=== PATIENT | female | born 1935 | race Caucasian/White ===

== ENCOUNTER 2023-03-15 14:30 | Inpatient (IN) | payer MEDICARE, OTHER, SELFPAY ==
[2023-03-15] VITALS (22 sets, daily range): BP systolic 106–130; BP diastolic 55–96; PULSE 88–122; RESP 10–25; TEMP 36.4–36.6; O2SAT 80–93; BMI 16.2
--- NOTE | 2023-03-15 14:31 | ED_ITS ---
HPI - General Adult General: Chief complaint: Weakness Stated complaint: FAILURE TO THRIVE Time Seen by Provider: 03/15/23 14:31 Limitations: altered mental status History of Present Illness: Ms. Rojas is an 88-year-old lady with unclear history presented the emergency department for mental status change. The patient herself largely does not provide meaningful history. Per EMS report she lives with family and they were concerned about functional decline over the past 2 weeks including progressive weakness and no longer having the ability to ambulate or take care of herself. She possibly has a history of Alzheimer's. Found to be in A-fib with RVR with no reported cardiac history. Review of Systems General: Reports: ROS unobtainable due to mental status PFSH ED PFSH: Medical History (Updated 03/21/23 @ 00:01 by ISABELL Santillan) Medical history unknown Surgical History (Updated 03/15/23 @ 14:45 by Aubrey Marcial MD) Surgical history unknown Family History (Updated 03/15/23 @ 16:53 by Tanvir Lynch MD) Other Family history unknown Social History (Updated 03/15/23 @ 16:54 by Tanvir Lynch MD) Smoking and tobacco status: never smoked Alcohol intake: never Substance/Drug Use: never Physical Exam Const: COMMON NORMALS: alert GENERAL APPEARANCE: cooperative and well developed HENMT: COMMON NORMALS: normocephalic and atraumatic HEAD & SCALP: normocephalic and atraumatic Eye: COMMON NORMALS: conjunctivae normal CONJUNCTIVA: Yes conjunctivae normal SCLERA: sclerae normal Neck/C-Spine: COMMON NORMALS: supple GENERAL: Yes trachea midline Resp: COMMON NORMALS: normal respiratory effort EFFORT & INSPECTION: Yes ab le to speak in complete sentences Cardio: RATE: tachycardic RHYTHM: abnormal rhythm GI: COMMON NORMALS: Soft to palpation PALPATION: Yes Soft to palpation and No Tenderness to palpation present (GI) Extremity: GENERAL: Yes normal exam except as noted and Yes edema Neuro: COMMON NORMALS: CN's II-XII intact bilaterally, moves all extremities, no focal motor deficits and no sensory deficits noted SENSORIUM/ORIENTATION: Yes alert and Yes Orientation impaired Psych: MEMORY/COGNITION: Yes memory grossly impaired Course Vital Signs: Vital signs: Vital Signs Temperature 97.3 F L 03/20/23 11:40 Pulse Rate 80 03/20/23 13:25 Respiratory Rate 14 03/20/23 13:25 Blood Pressure 107/72 03/20/23 13:25 Pulse Oximetry 87 L 03/20/23 13:25 Oxygen Delivery Me thod Room Air 03/20/23 11:40 Oxygen Flow Rate 4 03/18/23 07:56 MDM - General Adult Medical Decision Making 88-year-old lady presented the emergency department for generalized decline. Nonfocal exam as noted above. Patient is nontoxic though somewhat ill. EKG demonstrates atrial fibrillation with rapid ventricular response. No STEMI. Labs with no leukocytosis, normal hemoglobin and platelet count. Metabolic panel with elevated sodium and chloride with mildly decreased bicarb. Creatinin e is elevated with somewhat unclear baseline. Negative range 2-hour delta troponin. BNP is significantly elevated. Urinalysis and viral panel are pending. Chest x-ray demonstrates no lobar consolidation or pneumothorax. Concern for volume overload. CT head demonstrates no acute mass or intracranial hemorrhage. Patient has volume overload in combination with new onset arrhythmia and requires in-hospital management. The results of ED evaluation were discussed with the patient including plan for admission due to requirement for level of care not available if discharged to prevent significant worsening/deterioration. Patient agreeable with plan. Discussed with hospitalist service who was agreeable to admit patient. Medical Records I reviewed the patient's medical records. Lab Data I reviewed the patient's lab results. 03/20/23 04:22 03/20/23 04:22 Radiology Impressions Chest X-Ray 03/15/23 14:41 IMPRESSION: 1. Cardiac enlargement with pulmonary vascular congestion and bilateral pleural effusions consistent with CHF. Head CT 03/15/23 14:41 IMPRESSION: 1. No acute intracranial abnormality. 2. Atrophy and chronic deep white matter ischemic changes. Chest/Abdomen/Pelvis CT 03/15/23 16:45 IMPRESSION: 1. No acute findings. 2. Moderate pleural effusions with dependent atelectasis. 3. Pericardial effusion. IMPRESSION: 1. No acute findings. 2. Diffuse body wall edema. 3. Rectal impaction. ADDENDUM: 03/15/232142 Minimal T11 and severe T12 compression fractures. These are age indeterminate. Laboratory Results WBC 8.1 10^3/uL (4.0-10.0) 03/15/23 14:53 RBC 4.07 10^6/uL (4.1-5.3) L 03/15/23 14:53 Hgb 12.5 g/dL (11.5-15.3) 03/15/23 14:53 Hct 39.7 % (37.0-47.0) 03/15/23 14:53 MCV 97.5 fl (81-99) 03/15/23 14:53 MCH 30.7 pg (28.0-34.0) 03/15/23 14:53 MCHC 31.5 g/dL (30.0-36.0) 03/15/23 14:53 RDW 15.2 % (12.1-15.1) H 03/15/23 14:53 Plt Count 240 10^3/cmm (130-400) 03/15/23 14:53 MPV 10.2 fL (7.4-10.4) 03/15/23 14:53 Neut % (Auto) 84.8 % 03/15/23 14:53 Lymph % (Auto) 5.0 % 03/15/23 14:53 [place] % (Auto) 9.0 % 03/15/23 14:53 Eos % (Auto) 0.2 % 03/15/23 14:53 Baso % (Auto) 0.5 % 03/15/23 14:53 Neut # (Auto) 6.89 10^3/uL (1.8-7.7) 03/15/23 14:53 Lymph # (Auto) 0.4 10^3/uL (0.8-4.8) L 03/15/23 14:53 [place] # (Auto) 0.7 10^3/uL (0.2-0.9) 03/15/23 14:53 Eos # (Auto) 0.0 10^3/uL (0.0-0.8) 03/15/23 14:53 Baso # (Auto) 0.0 10^3/uL (0.0-0.1) 03/15/23 14:53 Nucleated RBC % (auto) 0 % 03/15/23 14:53 Nucleated RBCs # 0.0 /100WBC 03/15/23 14:53 Sodium 147 mmol/L (136-145) H 03/15/23 14:53 Potassium 3.9 mmol/L (3.5-5.1) 03/15/23 14:53 Chloride 114 mmol/L (98-107) H 03/15/23 14:53 Carbon Dioxide 19 mmol/L (22-29) L 03/15/23 14:53 Anion Gap 17.9 (5-19) 03/15/23 14:53 BUN 40 mg/dL (8-23) H 03/15/23 14:53 Creatinine 1.8 mg/dL (0.5-0.9) H 03/15/23 14:53 GFR Calculation Not Reportable 03/15/23 14:53 Glucose 158 mg/dL (65-115) H 03/15/23 14:53 Estimat Average Glucose 103 03/15/23 14:53 Hemoglobin A1c 5.2 % (4.0-6.0) 03/15/23 14:53 Calculated Osmolality 317 mOsm/kg (285-295) H 03/15/23 14:53 Lactic Acid 1.7 mmol/L (0.5-2.2) 03/15/23 14:53 Calcium 8.7 mg/dL (8.5-10.5) 03/15/23 14:53 Magnesium 2.1 mg/dL (1.7-2.3) 03/15/23 14:53 Total Bilirubin 0.5 mg/dL (0.15-1.2) 03/15/23 14:53 AST 20 U/L (0-32) 03/15/23 14:53 ALT 21 U/L (0-33) 03/15/23 14:53 Alkaline Phosphatase 102 U/L (35-105) 03/15/23 14:53 Troponin T Baseline 66 ng/L (0-10) H 03/15/23 14:53 C-Reactive Protein 12.5 mg/L (0.0-4.9) H 03/15/23 14:53 NT-Pro-B Natriuret Pep 01249 pg/mL (0-450) H 03/15/23 14:53 Total Protein 6.1 g/dL (6.6-8.7) L 03/15/23 14:53 Albumin 3.4 g/dL (3.5-5.2) L 03/15/23 14:53 Globulin 2.7 g/dL (1.3-4.6) 03/15/23 14:53 Triglycerides 125 mg/dL (0-150) 03/15/23 14:53 Cholesterol 187 mg/dL (0-200) 03/15/23 14:53 LDL Cholesterol, Calc 102 mg/dL (50-129) 03/15/23 14:53 HDL Cholesterol 60 mg/dL (60-100) 03/15/23 14:53 LDL/HDL Ratio 1.70 RATIO (0.00-3.22) 03/15/23 14:53 Cholesterol/HDL Ratio 3.12 mg/dL (0.0-4.40) 03/15/23 14:53 Procalcitonin 0.09 ng/mL (0-0.5) 03/15/23 14:53 TSH 3.99 uIU/mL (0.27-4.20) 03/15/23 14:53 Urine Color Yellow (Yellow) 03/15/23 16:46 Urine Appearance Hazy (CLEAR) A 03/15/23 16:46 Urine pH 5 (5-7) 03/15/23 16:46 Ur Specific [place] 1.020 (1.005-1.030) 03/15/23 16:46 Urine Protein Trace (Negative) 03/15/23 16:46 Urine Glucose (UA) Norm (Normal) 03/15/23 16:46 Urine Ketones Negative (Negative) 03/15/23 16:46 Urine Blood Trace (Negative) H 03/15/23 16:46 Urine Nitrate Positive (Negative) H 03/15/23 16:46 Urine Bilirubin Neg (Negative) 03/15/23 16:46 Urine Urobilinogen Norm mg/dL (Negative) 03/15/23 16:46 Ur Leukocyte Esterase 2+ (Negative) H 03/15/23 16:46 Urine RBC 5-10 /hpf (0-2) H 03/15/23 16:46 Urine WBC 25-40 /hpf (0-5) H 03/15/23 16:46 Ur Squamous Epith Cells 0-4 /hpf (0-5) H 03/15/23 16:46 Amorphous Sediment Not Reportable 03/15/23 16:46 Urine Bacteria 4+ /hpf (NONE) H 03/15/23 16:46 Nasal Influ A H1 2009 PCR Not detected (NOT DETECT) 03/15/23 15:44 Adenovirus (PCR) Not detected (NOT DETECT) 03/15/23 15:44 C. pneumoniae DNA (PCR) Not detected (NOT DETECT) 03/15/23 15:44 Coronavirus 229E (PCR) Not detected (NOT DETECT) 03/15/23 15:44 Human Metapneumovir PCR Not detected (NOT DETECT) 03/15/23 15:44 Influenza A (H1) PCR Not detected (NOT DETECT) 03/15/23 15:44 Influenza A (H3) PCR Not detected (NOT DETECT) 03/15/23 15:44 Influenza Type A (PCR) Not detected (NOT DETECT) 03/15/23 15:44 Influenza Type B (PCR) Not detected (NOT DETECT) 03/15/23 15:44 M. pneumoniae (PCR) Not detected (NOT DETECT) 03/15/23 15:44 Parainfluenza 1 (PCR) Not detected (NOT DETECT) 03/15/23 15:44 Parainfluenza 2 (PCR) Not detected (NOT DETECT) 03/15/23 15:44 Parainfluenza 3 (PCR) Not detected (NOT DETECT) 03/15/23 15:44 Parainfluenza 4 (PCR) Not detected (NOT DETECT) 03/15/23 15:44 RSV Type A (PCR) Not detected (NOT DETECT) 03/15/23 15:44 RSV Type B (PCR) Not detected (NOT DETECT) 03/15/23 15:44 Entero/Rhino (PCR) Not detected (NOT DETECT) 03/15/23 15:44 SARS-CoV-2 (PCR) Not detected (NOT DETECT) 03/15/23 15:44 Discharge Plan Discharge Patient Disposition: Admitted As Inpatient Admit Provider: Tanvir Lynch Clinical Impression: Atrial fibrillation with RVR, Symptom of congestive heart failure, Volume overload, Creatinine elevation Condition: Stable Discharge Diet: GI Soft Discharge Activity: Resume usual activity Coding Level of Care Code ED [employer] Supervisor for Kimberley Cooper
--- NOTE | 2023-03-15 14:41 | XR_ITS ---
WS: [id number] Exam: XR chest 1V portable [id number] Date/Time of Exam: 03/15/2023 2:43 PM Reason For Exam: ams No previous exams. There is cardiac enlargement with pulmonary vascular congestion and bilateral pleural effusions sugge sting CHF. There is compressive atelectasis of the right lower lobe as well as the left lower lobe an d lingula. No pneumothorax is seen. The mediastinum is normal in contour. Calcification of the mitral valve annulus. At least 2 old left rib fractures noted. Old left clavicle fracture. XR/XR chest 1V portable [id number] IMPRESSION: 1. Cardiac enlargement with pulmonary vascular congestion and bilateral pleural effusions consistent with CHF.
--- NOTE | 2023-03-15 14:41 | CTR_ITS ---
PROCEDURE INFORMATION: Exam: CT Head Without Contrast Exam date and time: 03/15/2023 3:11 PM Age: 88 years old Clinical indication: Altered mental status/memory loss; Additional info: AMS TECHNIQUE: Imaging protocol: Computed tomography of the head without contrast. Radiation optimization: All CT scans at this facility use at least one of these dose optimization techniques: automated exposure control; mA and/or kV adjustment per patient size (includes targeted exams where dose is matched to clinical indication); or iterative reconstruction. REPORTING DATA: Count of CT and Cardiac NM exams in prior 12 months: This patient has received 0 known CTs and 0 known cardiac nuclear medicine studies in the 12 months prior to the current study. COMPARISON: No relevant prior studies available. RADIATION DOSE METRICS: Total DLP (mGy-cm): 1053.88 FINDINGS: Brain: There is no acute intracranial hemorrhage, cerebral edema, or midline shift. Chronic microvascular ischemic changes are seen in the periventricular white matter. Age-related cerebral and cerebellar volume loss is present. Cerebral ventricles: Mild ex vacuo dilation of the lateral and third ventricles is noted. Paranasal sinuses: There is no acute sinusitis. Mastoid air cells: The mastoid air cells are clear. Orbital cavities: The included orbital structures are unremarkable. Bones/joints: No acute fracture. Soft tissues: Unremarkable. Vasculature: Atherosclerotic calcifications are seen involving the cavernous carotid arteries. CT/CT head wo con* [id number] IMPRESSION: 1. No acute intracranial abnormality. 2. Atrophy and chronic deep white matter ischemic changes.
--- NOTE | 2023-03-15 14:50 | ECG_ITS ---
[facility] Test Date: 2023-03-15 Pat Name: Vaishali Rojas Department: Room: Gender: Female [facility] Tutor: : 1935 Requested By: Aubrey Marcial Order Number: [id number] Justin MD: Royce Dawson M.D. Measurements Intervals [place] Rate: 116 P: 54 SD: 161 QRS: 78 QRSD: 95 T: 15 QT: 337 QTc: 470 Interpretive Statements SINUS TACHYCARDIA WITH OCCASIONAL VENTRICULAR PREMATURE COMPLEXES WITH OCCASIONAL SUPRAVENTRICULAR PREMATURE COMPLEXES NONSPECIFIC T-WAVE ABNORMALITY ABNORMAL RHYTHM ECG No previous ECG available for comparison Electronically Signed On 03-15-2023 21:18:06 CDT by Royce Dawson M.D. [id number]
[2023-03-15 15:10] LABS: Basophils % 0.5 %; Eosinophils % 0.2 %; Hematocrit 39.7 % (37.0-47.0); Hemoglobin 12.5 g/dL (11.5-15.3); Lymphocytes # 0.4 10^3/uL (0.8-4.8); Mean Corpuscular HGB Conc 31.5 g/dL (30.0-36.0); Mean Corpuscular Hemoglobin 30.7 pg (28.0-34.0); Mean Corpuscular Volume 97.5 fl (81-99); Mean Platelet Volume 10.2 fL (7.4-10.4); Monocytes # 0.7 10^3/uL (0.2-0.9); Neutrophils # 6.89 10^3/uL (1.8-7.7); Neutrophils % 84.8 %; Nucleated Red Blood Cells % 0 %; Platelet Count 240 10^3/cmm (130-400); Red Blood Count 4.07 10^6/uL (4.1-5.3); Red Cell Distribution Width 15.2 % (12.1-15.1); White Blood Count 8.1 10^3/uL (4.0-10.0)
[2023-03-15 15:27] LABS: Lactic Sepsis W/Reflex 1.7 mmol/L (0.5-2.2)
[2023-03-15 15:43] LABS: Procalcitonin 0.09 ng/mL (0-0.5); Thyroid Stimulating Hormone 3.99 uIU/mL (0.27-4.20)
[2023-03-15 16:07] LABS: Alanine Aminotransferase 21 U/L (0-33); Albumin Level 3.4 g/dL (3.5-5.2); Alkaline Phosphatase 102 U/L (35-105); Anion Gap 17.9 (5-19); Aspartate Amino Transferase 20 U/L (0-32); Blood Urea Nitrogen 40 mg/dL (8-23); C Reactive Protein 12.5 mg/L (0.0-4.9); Calcium 8.7 mg/dL (8.5-10.5); Carbon Dioxide 19 mmol/L (22-29); Chloride 114 mmol/L (98-107); Globulin 2.7 g/dL (1.3-4.6); Glucose 158 mg/dL (65-115); Magnesium 2.1 mg/dL (1.7-2.3); Osmolality Calculated 317 mOsm/kg (285-295); Potassium 3.9 mmol/L (3.5-5.1); Sodium 147 mmol/L (136-145); Total Bilirubin 0.5 mg/dL (0.15-1.2); Total Protein 6.1 g/dL (6.6-8.7)
--- NOTE | 2023-03-15 16:08 | PC.PHAR ---
ATTEMPTED TO CONTACT PTS CONTACTS TO VERIFY MEDICATIONS AT 1600- PT UNABLE TO VERIFY MEDS AND CAN NOT GET AHOLD OF PTS CONTACT
[2023-03-15 16:11] LABS: Troponin(5th) Baseline 66 ng/L (0-10)
--- NOTE | 2023-03-15 16:42 | ECG_ITS ---
[facility] Test Date: 2023-03-15 Pat Name: Vaishali Rojas Department: Room: 112 Gender: Female Supervisor Plasma: : 1935 Requested By: Aubrey Marcial Order Number: [id number] Justin MD: Royce Dawson M.D. Measurements Intervals [place] Rate: 108 P: 45 MD: 174 QRS: 79 QRSD: 93 T: 120 QT: 338 QTc: 454 Interpretive Statements Multifocal atrial tachycardia with occasional PVCs NONSPECIFIC T-WAVE ABNORMALITY ABNORMAL RHYTHM ECG Compared to ECG 03/15/2023 14:50:26 No significant changes Electronically Signed On 03-15-2023 21:33:55 CDT by Royce Dawson M.D. [id number]
--- NOTE | 2023-03-15 16:45 | USCV_ITS ---
Bob Vaihsali Age: 88 Gender: F : 1935 Exam Date: 03/15/2023 17:16 Ordering Phys: Tanvir Lynch MD Technologist: CT Exam Location: [facility] [place] Indication: SOB, atrial fibrillation with RVR, altered mental status BP: 106 / 55 HR: 94 Rhythm: mostly atrial fibrillation with strings sinus rhythm Technical Quality: Good MEASUREMENTS (Male / Female) Normal Values 2D ECHO LV Diastolic Diameter PLAX 4.5 cm 4.2 - 5.9 / 3.9 - 5.3 cm LV Systolic Diameter PLAX 3.5 cm IVS Diastolic Thickness 1.3 cm 0.6 - 1.0 / 0.6 - 0.9 cm IVS Systolic Thickness 1.5 cm LVPW Diastolic Thickness 1.1 cm 0.6 - 1.0 / 0.6 - 0.9 cm LVPW Systolic Thickness 1.2 cm LVOT Diameter 1.9 cm LV Ejection Fraction 2D Teich 47.4 % LV Ejection Fraction MOD 2C 63.1 % LV Ejection Fraction 2C AL 65.5 % LA Diameter 4.7 cm LA Width 4.0 cm LA Height 6.5 cm RA Width 2.8 cm RA Height 5.0 cm Aorta at Sinotubular Diameter 2.4 cm IVC Diameter 1.5 cm M-MODE Aortic Annulus Diameter 2.4 cm LA Ao Ratio MM 2.0 MV E Point Septal Separation 1.0 cm DOPPLER AV Peak Velocity 120.7 cm/s LVOT Peak Velocity 51.0 cm/s AV Area Cont Eq vti 1.0 cm squared AV Area Cont Eq pk 1.2 cm squared MV Area PHT 3.7 cm squared Mitral E to A Ratio 1.4 MV E' Velocity 51.0 cm/s Mitral E to MV E' Ratio 9.6 Mitral E to LV E' Lateral Ratio 7.4 Mitral E to LV E' Septal Ratio 13.6 TR Peak Velocity 281.6 cm/s TR Peak Gradient 31.7 mmHg TV Peak E Velocity 56.0 cm/s Right Atrial Pressure 10.0 mmHg Pulmonary Artery Systolic Pressu 41.7 mmHg PV Peak Velocity 71.0 cm/s FINDINGS Left Ventricle Mildly increased left ventricular cavity size. Severely decreased left ventricular systolic function. Left ventricular ejection fraction is estimated at 20-25 %. Global left ventricular hypokinesis. Rhythm precludes evaluation of diastolic function. Right Ventricle Normal right ventricular size and systolic function. Right ventricular systolic pressure 41 mmHg. Right Atrium Normal right atrial size. Left Atrium Moderately increased left atrial size. Mitral Valve Mildly thickened mitral valve. No mitral valve stenosis. Mild- moderate mitral valve regurgitation. Aortic Valve Thickened trileaflet aortic valve. No aortic valve stenosis. No aortic valve regurgitation. Tricuspid Valve Structurally normal tricuspid valve. No tricuspid valve stenosis. Mild tricuspid valve regurgitation. Pulmonic Valve Structurally normal pulmonic valve. No pulmonary valve stenosis. Mild pulmonary valve regurgitation. Pericardium Small pericardial effusion. Left pleural effusion. Aorta Normal size aortic root and proximal ascending aorta. IVC Normal IVC dimension with >50% respiratory change of the inferior vena cava. CONCLUSIONS 1. Mildly increased left ventricular cavity size. Severely decreased left ventricular systolic function. Left ventricular ejection fraction is estimated at 20-25 %. Global left ventricular hypokinesis. 2. Mild-moderate mitral valve regurgitation. 3. Mild tricuspid valve regurgitation. 4. Small pericardial effusion. Left pleural effusion. 5. No Prior similar studies to compare. Rand Lux MD (Electronically Signed) Final Date: 16 March 2023 16:42 S
--- NOTE | 2023-03-15 16:45 | CTR_ITS ---
PROCEDURE INFORMATION: Exam: CT Chest Without Contrast; Diagnostic Exam date and time: 03/15/2023 8:21 PM Age: 88 years old Clinical indication: Pain and injury or trauma; Fall; Other: Weakness; Crushing; Abdominal pain; Localized; Right upper quadrant (ruq); Shortness of breath; Chest pressure; Additional info: SOB, fall weakness, ruq pain TECHNIQUE: Imaging protocol: Diagnostic computed tomography of the chest without contrast. Radiation optimization: All CT scans at this facility use at least one of these dose optimization techniques: automated exposure control; mA and/or kV adjustment per patient size (includes targeted exams where dose is matched to clinical indication); or iterative reconstruction. REPORTING DATA: Count of CT and Cardiac NM exams in prior 12 months: This patient has received 0 known CTs and 0 known cardiac nuclear medicine studies in the 12 months prior to the current study. COMPARISON: CR XR chest 1V portable [id number] 03/15/2023 2:46 PM RADIATION DOSE METRICS: Total DLP (mGy-cm): 224.9 FINDINGS: Lungs: Centrilobular emphysema. Dependent atelectasis in both lungs. No consolidation. Pleural spaces: Moderate bilateral pleural effusions, left slightly greater than right. Heart: Cardiomegaly. Pericardial effusion. Coronary arteries: No coronary artery calcifications. Lymph nodes: Unremarkable. No enlarged lymph nodes. Vasculature: Unremarkable. No aortic aneurysm. Bones/joints: Rightward thoracic curvature. Old posterior left rib fracture. Minimal T11 compression. Severe T12 compression with sclerosis and 2 mm retropulsion. Old healed left clavicle fracture. Old posterior right 12th and anterior left rib fractures. No acute fracture. Soft tissues: Body wall edema. PROCEDURE INFORMATION: Exam: CT Abdomen And Pelvis Without Contrast Exam date and time: 03/15/2023 8:21 PM Age: 88 years old Clinical indication: Pain and injury or trauma; Fall; Other: Weakness; Crushing; Abdominal pain; Localized; Right upper quadrant (ruq); Shortness of breath; Chest pressure; Additional info: SOB, fall weakness, ruq pain TECHNIQUE: Imaging protocol: Computed tomography of the abdomen and pelvis without contrast. Radiation optimization: All CT scans at this facility use at least one of these dose optimization techniques: automated exposure control; mA and/or kV adjustment per patient size (includes targeted exams where dose is matched to clinical indication); or iterative reconstruction. REPORTING DATA: Count of CT and Cardiac NM exams in prior 12 months: This patient has received 0 known CTs and 0 known cardiac nuclear medicine studies in the 12 months prior to the current study. COMPARISON: CR XR chest 1V portable [id number] 03/15/2023 2:46 PM RADIATION DOSE METRICS: Total DLP (mGy-cm): 290.6 FINDINGS: Liver: Normal. No mass. Gallbladder and bile ducts: Cholecystectomy. The bile ducts are normal. Pancreas: Atrophic pancreas. Spleen: Normal. No splenomegaly. Adrenal glands: Mild fullness of the adrenal glands could indicate hyperplasia. Kidneys and ureters: Normal. No hydronephrosis. Stomach and bowel: Large amount of stool in the rectum measuring 7.6 cm in diameter. The stomach, small bowel, and remainder of the colon are otherwise unremarkable. No wall thickening or obstruction. Appendix: The appendix is not visualized. No secondary signs of appendicitis. Intraperitoneal space: Unremarkable. No free air. No significant fluid collection. Vasculature: Arterial calcifications. No aneurysm. Lymph nodes: Unremarkable. No enlarged lymph nodes. Urinary bladder: Coy catheter in a decompressed urinary bladder. Reproductive: Unremarkable as visualized. Bones/joints: Thoracolumbar scoliosis and degenerative changes. Eliceo and compression screw in the proximal left femur. Degenerative changes of the right hip joint. Soft tissues: Diffuse body wall edema. CT/[place] [id number] IMPRESSION: 1. No acute findings. 2. Moderate pleural effusions with dependent atelectasis. 3. Pericardial effusion. IMPRESSION: 1. No acute findings. 2. Diffuse body wall edema. 3. Rectal impaction.
--- NOTE | 2023-03-15 16:49 | PM.HP ---
Providers/Chief Complaint Admitting Physician: Tanvir Lynch MD Chief Complaint: FAILURE TO THRIVE History of Present Illness Vaishali Rojas is a 88 year old female with no known past medical history, she has not seen a physician in many years, she lives at home with her grandson, and her daughter, who presents to [facility] due to altered mental status, generalized weakness, poor appetite, fall, generalized decline. Currently patient is alert to person, not to place, not to time, she can follow some basic commands, briefly has no complaints, she does not know why she is here in the hospital, she denies any pain complaints, denies any shortness of breath complaints, no chest pain complaints, currently she is running atrial fibrillation, heart rates in the 110s, normotensive, afebrile, on room air. I was able to speak to patient's grandson, he tells me that the family seems to think she has Alzheimer's dementia as she has had a generalized decline for the last few months, she has been more forgetful, but over the last 2 weeks she has had a rapid decline, she has not walked in over a week, she full assist to the commode, she is more confused, she will not eat anything, no fevers, no nausea, no vomiting no abdominal pain complaints, no shortness of breath complaints she did fall, but no localizing symptoms or pain complaints, she did does not have a cardiac history to his knowledge, does not have a long history to his knowledge, no history of strokes, no history of cancers, he is not sure if there is any family history,, he is not sure if there is any surgeries in her past, no history of smoking, his major concern was is that she has not eaten or drink for the last 2 weeks, and she has not been able to get up or ambulate Review of Systems General: Reports: ROS unobtainable due to mental status Medications/Allergies Home Medications Medication Instructions Recorded Confirmed Last Taken Type Unable to Assess 03/15/23 03/15/23 Unknown History Allergies Allergy/AdvReac Type Severity Reaction Status Date / Time No Known Allergies Allergy Verified 03/15/23 15:25 PFSH Acute PFSH: Medical History (Updated 03/15/23 @ 17:16 by Tanvir Lynch MD) Medical history unknown Surgical History (Updated 07/19/23 @ 14:45 by Aubrey Marcial MD) Surgical history unknown Family History (Updated 03/15/23 @ 16:53 by Tanvir Lynch MD) Other Family history unknown Social History (Updated 03/15/23 @ 16:54 by Tanvir Lynch MD) Smoking and tobacco status: never smoked Alcohol intake: never Substance/Drug Use: never Vitals/I&O/Wt Last Vital Signs Temp 97.5 F L 03/15/23 15:29 Pulse 114 H 03/15/23 15:29 Resp 21 H 03/15/23 15:29 BP 130/96 03/15/23 15:29 Pulse Ox 92 03/15/23 15:29 Physical Exam Const: COMMON NORMALS: no acute distress EXAM LIMITATIONS: altered mental status GENERAL APPEARANCE: cooperative NUTRITIONAL APPEARANCE: thin ORIENTATION/CONSCIOUSNESS: Yes awake, Yes oriented to person and Yes confused; not oriented to place and not oriented to time HENMT: COMMON NORMALS: normocephalic and Normal external nose present HEAD & SCALP: normocephalic FACE & SINUS: normal facial exam NOSE: Normal external nose present Eye: COMMON NORMALS: Equal, round and reactive pupils present, conjunctivae normal and no scleral icterus CONJUNCTIVA: Yes conjunctivae normal PUPIL: Yes Equal, round and reactive pupils present Neck/C-Spine: COMMON NORMALS: full ROM, no lymphadenopathy, no JVD, Thyroid normal and No carotid bruits THYROID: Thyroid normal Lymph: LYMPHATIC: no lymphadenopathy noted Chest: COMMONS NORMALS: normal inspection of the chest Resp: COMMON NORMALS: normal respiratory effort, No retractions and No use of accessory muscles AUSCULTATION: crackles Cardio: COMMON NORMALS: no JVD, S1 normal heart sound present, S2 normal heart sound present, No murmurs present (Cardio) and Peripheral pulses 2+ throughout RATE: tachycardic RHYTHM: abnormal rhythm irregularly irregular HEART SOUNDS: S1 normal heart sound present and S2 normal heart sound present PERIPHERAL PULSES: Peripheral pulses 2+ throughout GI: COMMON NORMALS: Normal to inspection, nondistended, normoactive bowel sounds present and Soft to palpation PALPATION: Yes Soft to palpation and Yes No hepatosplenomegaly present OTHER: Right upper quadrant tenderness : BLADDER/KIDNEY EXAM: Yes no CVA tenderness Back/Pelvis: COMMON NORMALS: no CVA tenderness Extremity: COMMON NORMALS: normal to inspection, full ROM, no calf tenderness and no pedal edema Neuro: COMMON NORMALS: moves all extremities and no focal motor deficits OTHER: Does not follow neurologic testing, but on exam no slurring of her words, she can smile for me, she has spontaneous movement of upper and lower extremities, she can squeeze my fingers,, wiggle her toes, Skin: COMMON NORMALS: turgor normal and no jaundice GENERAL SKIN EXAM: turgor normal Data 03/15/23 14:53 03/15/23 14:53 Micro: Microbiology 03/15/23 15:28 Blood Culture - Preliminary Blood SPECIMEN COLLECTED 03/15/23 14:53 Blood Culture - Preliminary Blood SPECIMEN COLLECTED A&P Assessment and plan (1) NSTEMI (non-ST elevated myocardial infarction): (2) Atrial fibrillation with RVR: (3) Adult failure to thrive: (4) Altered mental status: (5) Falls: (6) Symptom of congestive heart failure: (7) Congestive heart failure: (8) Protein-calorie malnutrition, moderate: (9) Physical deconditioning: (10) Hypernatremia: (11) Pulmonary edema: (12) Acute kidney injury: (13) Dementia: (14) UTI (urinary tract infection): Plan A-fib with RVR -Currently heart rate is in the 110's -Start metoprolol 25 mg twice daily -We will start on heparin drip -Cardiac echo NSTEMI -Serial EKGs, serial troponins, telemetry monitoring -No chest pain complaints, no cardiovascular history -Metoprolol and heparin as above Evidence of CHF -Type unknown -Elevated BNP, chest x-ray showing pulmonary vascular congestion, YOSSI, hyponatremia, could all be evidence of advanced heart failure -1 dose of Lasix today Pulm edema, pulm vascular congestion, diuresis as above -YOSSI -Baseline creatinine unknown, 1.8 -We will monitor -CPK Acute encephalopathy -Baseline mentation unknown -Family reports possible dementia -Obtain a UA -Monitor mentation -CT of the head does show Brain: There is no acute intracranial hemorrhage, cerebral edema, or midline shift. Chronic microvascular ischemic changes are seen in the periventricular white matter. Age-related cerebral and cerebellar volume loss is present. Cerebral ventricles: Mild ex vacuo dilation of the lateral and third ventricles is noted. Protein calorie malnutrition -On examination, has peripheral muscle wasting, temporal muscle wasting, muscle wasting of big muscle groups such as thighs, shoulders -Consult nutrition Physical deconditioning, PT OT Reported falls Adult failure to thrive -Consult nutrition Heparin for DVT prophylaxis Protonix for GI prophylaxis Full code Attestations Medical Necessity Statement*: Patient requires hospitalization for altered mental status, deconditioning, protein calorie malnutrition, falls, hypernatremia, acute kidney injury, fluid overload, evidence of heart failure, adult failure to thrive, pulmonary edema, pulmonary vascular congestion, uti, NSTEMI, A-fib with RVR inpatient, greater than 2 midnights, and High Time for a total of 70 minutes, includes reviewing past or interval history, examining/interviewing patient, placing orders, counseling patient/family/other support, updating patient/family/other support, discussing plan of care with staff, communicating with other healthcare providers, documenting encounter and coordinating care Diagnoses NSTEMI (non-ST elevated myocardial infarction) I21.4 Atrial fibrillation with RVR I48.91 Adult failure to thrive R62.7 Altered mental status R41.82 Falls W19.XXXA Symptom of congestive heart failure R09.89 Congestive heart failure I50.9 Protein-calorie malnutrition, moderate E44.0 Physical deconditioning R53.81 Hypernatremia E87.0 Pulmonary edema J81.1 Acute kidney injury N17.9 Dementia F03.90 UTI (urinary tract infection) N39.0
[2023-03-15 17:10] LABS: Add Urine Culture? Yes; Add Urine Microscopic? YES; Bacteria Urine 4+ /hpf; Bilirubin Urine Neg (Negative); Blood Urine Trace (Negative); Glucose Urine UA Norm (Normal); Ketones Urine Negative (Negative); Leukocyte Esterase Urine 2+ (Negative); Nitrate Urine Positive (Negative); Protein Urine Trace (Negative); Squamous Epithelial Cell Urine 0-4 /hpf (0-5); Urine Appearance Hazy (CLEAR); Urine Color Yellow (Yellow); Urobilinogen Urine Norm (Negative); WBC Urine 25-40 /hpf (0-5); pH Urine 5 (5-7)
[2023-03-15 17:23] LABS: Chol HDL Ratio 3.12 mg/dL (0.0-4.40); Cholesterol 187 mg/dL (0-200); HDL Cholesterol 60 mg/dL (60-100); LDL Cholesterol Calculated 102 mg/dL (50-129); Triglycerides 125 mg/dL (0-150)
[2023-03-15 17:36] LABS: Adenovirus Not Detected (NOT DETECT); Chlamydia Pneumoniae Not Detected (NOT DETECT); Coronavirus 229E,HKU1,NL63,OC4 Not Detected (NOT DETECT); Human Metapneumovirus Not Detected (NOT DETECT); Human Rhinovirus/Enterovirus Not Detected (NOT DETECT); Influenza A Not Detected (NOT DETECT); Influenza A H1 Not Detected (NOT DETECT); Influenza A H1-2009 Not Detected (NOT DETECT); Influenza A H3 Not Detected (NOT DETECT); Influenza B Not Detected (NOT DETECT); Mycoplasma Pneumoniae Not Detected (NOT DETECT); Parainfluenza Virus Type 1 Not Detected (NOT DETECT); Parainfluenza Virus Type 2 Not Detected (NOT DETECT); Parainfluenza Virus Type 3 Not Detected (NOT DETECT); Parainfluenza Virus Type 4 Not Detected (NOT DETECT); Respiratory Syncytial Virus A Not Detected (NOT DETECT); Respiratory Syncytial Virus B Not Detected (NOT DETECT); SARS-COV-2 Not Detected (NOT DETECT)
[2023-03-15 17:37] LABS: Estmated Average Glucose 103; Hemoglobin A1C 5.2 % (4.0-6.0)
[2023-03-15 17:47] LABS: Troponin 5 2HR 59.96 ng/L (0-10)
[2023-03-15 17:50] LABS: Troponin 5 2HR Delta -6.04 ABS# (0-10)
[2023-03-15] MEDS: metoprolol tartrate 25 mg Tablet PO (18:21)
[2023-03-15] MEDS: FUROsemide 10 mg/mL SDV 4mL 40 MG IVP (18:22)
[2023-03-15] MEDS: pantoprazole 40 mg SDV IVP (18:22)
[2023-03-15] MEDS: cefTRIAXone 1,000 MG in sodium chloride 0.9% (plus) 50 ML 100 MG IV (18:23)
[2023-03-15] MEDS: heparin drip 25,000 UNIT/500 ML PREMIX 11 UNIT IV (19:28)
[2023-03-15 20:57] LABS: Glucose Point of Care 116 mg/dL (70-110)
[2023-03-15 21:27] LABS: Troponin 5 6HR 68.82 ng/L (0-10)
[2023-03-15 21:30] LABS: Troponin 5 6HR Delta 2.82 ng/L (0-12)
--- NOTE | 2023-03-15 22:36 | ECG_ITS ---
[facility] Test Date: 2023-03-15 Pat Name: Vaishali Rojas Department: Room: 112 Gender: Female Environmental Compliance Specialist: : [id number] Requested By: Aubrey Marcial Order Number: [id number] Reading MD: Rand Lux M.D. Measurements Intervals [place] Rate: 92 P: -9 VT: 163 QRS: 73 QRSD: 90 T: 148 QT: 390 QTc: 483 Interpretive Statements SINUS RHYTHM WITH FREQUENT VENTRICULAR PREMATURE COMPLEXES MODERATE T-WAVE ABNORMALITY, CONSIDER LATERAL ISCHEMIA [-0.1+ mV T-WAVE IN I/aVL/V5/V6] Compared to ECG 03/15/2023 16:49:23 Possible ischemia now present Ectopic atrial tachycardia, multifocal no longer present T-wave abnormality still present Electronically Signed On 03-16-2023 4:31:22 CDT by Rand Lux M.D. [id number]
[2023-03-16] VITALS (10 sets, daily range): BP systolic 106–129; BP diastolic 72–85; PULSE 84–105; RESP 16–26; TEMP 36.2–36.8; O2SAT 74–95
[2023-03-16 01:44] LABS: Basophils % 0.4 %; Eosinophils # 0.1 10^3/uL (0.0-0.8); Eosinophils % 0.7 %; Hematocrit 38.9 % (37.0-47.0); Hemoglobin 12.3 g/dL (11.5-15.3); Lymphocytes # 0.5 10^3/uL (0.8-4.8); Lymphocytes % 6.7 %; Mean Corpuscular HGB Conc 31.6 g/dL (30.0-36.0); Mean Corpuscular Hemoglobin 30.9 pg (28.0-34.0); Mean Corpuscular Volume 97.7 fl (81-99); Mean Platelet Volume 10.6 fL (7.4-10.4); Monocytes # 0.8 10^3/uL (0.2-0.9); Monocytes % 10.9 %; Neutrophils # 5.91 10^3/uL (1.8-7.7); Neutrophils % 80.9 %; Nucleated Red Blood Cells % 0 %; Platelet Count 238 10^3/cmm (130-400); Red Blood Count 3.98 10^6/uL (4.1-5.3); Red Cell Distribution Width 15.1 % (12.1-15.1); White Blood Count 7.3 10^3/uL (4.0-10.0)
[2023-03-16 02:07] LABS: Alanine Aminotransferase 19 U/L (0-33); Albumin Level 3.4 g/dL (3.5-5.2); Alkaline Phosphatase 94 U/L (35-105); Anion Gap 17.8 (5-19); Aspartate Amino Transferase 18 U/L (0-32); Blood Urea Nitrogen 37 mg/dL (8-23); Calcium 8.5 mg/dL (8.5-10.5); Carbon Dioxide 23 mmol/L (22-29); Chloride 109 mmol/L (98-107); Globulin 2.3 g/dL (1.3-4.6); Glucose 112 mg/dL (65-115); Osmolality Calculated 311 mOsm/kg (285-295); Phosphorus 3.6 mg/dL (2.5-4.5); Potassium 3.8 mmol/L (3.5-5.1); Sodium 146 mmol/L (136-145); Total Bilirubin 0.5 mg/dL (0.15-1.2); Total Protein 5.7 g/dL (6.6-8.7)
[2023-03-16 02:43] LABS: Partial Thromboplastin Time > 250.0 SECONDS (23.9-36.7)
--- NOTE | 2023-03-16 02:50 | PC.NURSE ---
Spoke with regarding patient PTT >250. ordered to hold heparin gtt x 2hrs, decrease gtt per protocol and recheck Ptt in 6hrs after dose adjustment.
[2023-03-16 02:56] LABS: NT Pro B Type Natriuretic Pept 38104 pg/mL (0-450)
[2023-03-16] MEDS: metoprolol tartrate 25 mg Tablet PO ×2 (05:14→17:24)
[2023-03-16] MEDS: docusate sodium 100 mg Capsule PO ×2 (09:22→17:24)
[2023-03-16] MEDS: FUROsemide 10 mg/mL SDV 2mL 20 MG IVP (09:22)
[2023-03-16] MEDS: polyethylene glycol 3350 Pkt 17 gm PO (09:22)
--- NOTE | 2023-03-16 10:00 | PC.CHAP ---
Pastoral Care Encounter/Spiritual Assessment Type of Contact [] Declined fitness and wellness director visit [] Patient/Family/Request visit [] Outpatient visit [] Follow-up visit [] Physician referral [] Code/Alert [x] Routine visit [] Staff referral [] Actively dying [] Patient sleeping [] Family support [] [] Out of room [] Palliative care [] [x] Receiving care in room [] Pre-surgical visit [] Trauma [] Long length of stay [] ICU visit [] Other: Relational/Emotional Strength [x] Patient feels connected with others/family/visitors/staff [] Distress [] Loneliness/isolation [] Abandonment Spirituality of Patient [x] Person of Nancy [] Attends Hoahaoism of their Nancy [x] Believes in Prayer [] Reads Bible or Buddhism materials [] There are Spiritual issues to be addressed Radiology Orderly Interventions [x] Prayer [x] Active listening [x] Non-anxious presence [x] Spiritual/emotional support [] Crisis/trauma care [x] Spiritual counseling [] Bereavement support [] Provided bereavement packet [] Provided Bible/devotional materials [] Provided toy/stuffed animal, coloring book to patient or family member [] Provided Communion [] Anointing/[place] [] Salvation [x] Completed spiritual assessment [] Other: Impact on Illness or Injury [] Angry [] Fearful [] Anxious [] Often cries [] Exhaustion [] Unable to work [] Unable to attend temple [] Unable to walk/stand [] Unable to read [] Unable to drive [] Unable to eat/drink [] Unable to sleep [] Unable to be with family [] Patient intubated [] Other: Summary confused doesn't know checking with dotor well go go home at some point has a good attitude Time spent with patient 10 mins
[2023-03-16 11:25] LABS: Partial Thromboplastin Time 55.6 SECONDS (23.9-36.7)
--- NOTE | 2023-03-16 16:55 | PM.PN ---
Subjective Subjective: - Patient was seen this morning -She is alert to person, not to place, not to time, she has no complaints -She denies any abdominal pain -She denies any headaches -No nausea, no vomiting -She had a bowel movement Vitals/I&O/Wt Last Vital Signs Temp 98.0 F 03/16/23 16:00 Pulse 98 03/16/23 16:00 Resp 16 03/16/23 16:00 BP 115/81 03/16/23 16:00 Pulse Ox 95 03/16/23 16:00 O2 Del Method Room Air 03/16/23 16:00 03/16/23 03/16/23 03/16/23 06:59 14:59 22:59 Intake Total 230.483 / 459.483 100 / 100 Output Total 900 / 2620 Balance -669.517 / -2160.517 100 / 100 Weight last 48 hrs Weight 38.555 kg Weight 40.143 kg Physical Exam Const: COMMON NORMALS: no acute distress ORIENTATION/CONSCIOUSNESS: Yes awake and Yes oriented to person; not oriented to place and not oriented to time Neck/C-Spine: COMMON NORMALS: no JVD Resp: COMMON NORMALS: normal respiratory effort, No retractions, No use of accessory muscles and clear to auscultation bilaterally AUSCULTATION: clear to auscultation bilaterally Cardio: COMMON NORMALS: no JVD, regular rate, S1 normal heart sound present and S2 normal heart sound present RATE: regular rate RHYTHM: abnormal rhythm irregularly irregular HEART SOUNDS: S1 normal heart sound present and S2 normal heart sound present GI: COMMON NORMALS: Normal to inspection, nondistended, normoactive bowel sounds present and non-tender Extremity: COMMON NORMALS: no pedal edema Neuro: SENSORIUM/ORIENTATION: Yes oriented to person, No oriented to place and No oriented to time Data 03/16/23 01:30 03/16/23 01:30 Micro: Microbiology 03/15/23 15:28 Blood Culture - Preliminary Blood NEGATIVE TO DATE 03/15/23 14:53 Blood Culture - Preliminary Blood NEGATIVE TO DATE A&P Assessment and plan (1) NSTEMI (non-ST elevated myocardial infarction): (2) Atrial fibrillation with RVR: (3) Adult failure to thrive: (4) Altered mental status: (5) Falls: (6) Symptom of congestive heart failure: (7) Congestive heart failure: (8) Protein-calorie malnutrition, moderate: (9) Physical deconditioning: (10) Hypernatremia: (11) Pulmonary edema: (12) Acute kidney injury: (13) Dementia: (14) UTI (urinary tract infection): (15) Systolic CHF, acute: Plan A-fib with RVR -Currently heart rate is in the 100's -Continue metoprolol 25 mg twice daily -Stop heparin drip switch to therapeutic Lovenox -Cardiac echo ?1. Mildly increased left ventricular cavity size. Severely ?decreased left ventricular systolic function. Left ventricular ?ejection fraction is estimated at 20-25 %. Global left ?ventricular hypokinesis. ?2.? Mild-moderate mitral valve regurgitation. ?3.? Mild tricuspid valve regurgitation. ?4. Small pericardial effusion. Left pleural effusion. ?5. No Prior similar studies to compare. NSTEMI -Serial EKGs, serial troponins, telemetry monitoring -No chest pain complaints, no cardiovascular history -Metoprolol and lovenox -?1. Mildly increased left ventricular cavity size. Severely ?decreased left ventricular systolic function. Left ventricular ?ejection fraction is estimated at 20-25 %. Global left ?ventricular hypokinesis. ?2.? Mild-moderate mitral valve regurgitation. ?3.? Mild tricuspid valve regurgitation. ?4. Small pericardial effusion. Left pleural effusion. ?5. No Prior similar studies to compare -Aspirin, statin, beta-petrona. -1 dose of Lasix today Evidence of CHF -systolic chf -Elevated BNP, chest x-ray showing pulmonary vascular congestion, YOSSI, hyponatremia, could all be evidence of advanced heart failure -1 dose of Lasix today, overall -3 L Pulm edema, pulm vascular congestion, diuresis as above -YOSSI -Baseline creatinine unknown, 1.7 -We will monitor Acute encephalopathy -Baseline mentation unknown -Family reports possible dementia -UA with evidence of UTI -Monitor mentation -CT of the head does show Brain: There is no acute intracranial hemorrhage, cerebral edema, or midline shift. Chronic microvascular ischemic changes are seen in the periventricular white matter. Age-related cerebral and cerebellar volume loss is present. Cerebral ventricles: Mild ex vacuo dilation of the lateral and third ventricles is noted. UTI, continue Rocephin Protein calorie malnutrition -On examination, has peripheral muscle wasting, temporal muscle wasting, muscle wasting of big muscle groups such as thighs, shoulders -Consult nutrition Physical deconditioning, PT OT Reported falls Adult failure to thrive, BMI 15 -Consult nutrition Lovenox for DVT prophylaxis Protonix for GI prophylaxis Full code Stop heparin drip, switch to therapeutic Lovenox, 1 dose Lasix, continue antibiotic therapy, I have reached out to family members about her goals of care, given her diminished ejection fraction if family wants to proceed with coronary angiography or intervention however I am not able to get through to them, Attestations Medical Necessity Statement*: Patient requires hospitalization for A-fib, systolic CHF requiring diuresis, EF of 20 to 25%, encephalopathy, UTI, adult failure to thrive, BMI 15, physical deconditioning Diagnoses NSTEMI (non-ST elevated myocardial infarction) I21.4 Atrial fibrillation with RVR I48.91 Adult failure to thrive R62.7 Altered mental status R41.82 Falls W19.XXXA Symptom of congestive heart failure R09.89 Congestive heart failure I50.9 Protein-calorie malnutrition, moderate E44.0 Physical deconditioning R53.81 Hypernatremia E87.0 Pulmonary edema J81.1 Acute kidney injury N17.9 Dementia F03.90 UTI (urinary tract infection) N39.0 Systolic CHF, acute I50.21
[2023-03-16] MEDS: aspirin 81 mg EC Tablet PO (17:24)
[2023-03-16] MEDS: enoxaparin 40 mg/0.4 mL Syringe SUBCUT (17:24)
[2023-03-16] MEDS: pantoprazole 40 mg SDV IVP (17:25)
[2023-03-16] MEDS: cefTRIAXone 1,000 MG in sodium chloride 0.9% (plus) 50 ML 100 MG IV (17:25)
[2023-03-16 17:35] LABS: Partial Thromboplastin Time 66.8 SECONDS (23.9-36.7)
[2023-03-16] MEDS: atorvastatin 40 mg Tablet PO (20:59)
[2023-03-17] VITALS (61 sets, daily range): BP systolic 122–135; BP diastolic 73–91; PULSE 70–113; RESP 11–30; TEMP 36.3–37; O2SAT 77–95
[2023-03-17 04:13] LABS: Basophils % 0.5 %; Eosinophils # 0.1 10^3/uL (0.0-0.8); Eosinophils % 1.3 %; Hematocrit 37.4 % (37.0-47.0); Lymphocytes # 0.5 10^3/uL (0.8-4.8); Lymphocytes % 8.8 %; Mean Corpuscular HGB Conc 32.1 g/dL (30.0-36.0); Mean Corpuscular Hemoglobin 31.2 pg (28.0-34.0); Mean Corpuscular Volume 97.1 fl (81-99); Mean Platelet Volume 11.3 fL (7.4-10.4); Monocytes # 0.8 10^3/uL (0.2-0.9); Monocytes % 13.3 %; Neutrophils # 4.67 10^3/uL (1.8-7.7); Neutrophils % 75.8 %; Nucleated Red Blood Cells % 0 %; Platelet Count 240 10^3/cmm (130-400); Red Blood Count 3.85 10^6/uL (4.1-5.3); Red Cell Distribution Width 15.3 % (12.1-15.1); White Blood Count 6.2 10^3/uL (4.0-10.0)
[2023-03-17 04:40] LABS: Alanine Aminotransferase 16 U/L (0-33); Albumin Level 3.2 g/dL (3.5-5.2); Alkaline Phosphatase 87 U/L (35-105); Aspartate Amino Transferase 16 U/L (0-32); Blood Urea Nitrogen 34 mg/dL (8-23); Calcium 8.4 mg/dL (8.5-10.5); Carbon Dioxide 19 mmol/L (22-29); Chloride 111 mmol/L (98-107); Glucose 97 mg/dL (65-115); Osmolality Calculated 310 mOsm/kg (285-295); Sodium 146 mmol/L (136-145); Total Bilirubin 0.4 mg/dL (0.15-1.2); Total Protein 5.2 g/dL (6.6-8.7)
[2023-03-17 04:47] LABS: Anion Gap 19.6 (5-19); Potassium 3.6 mmol/L (3.5-5.1)
[2023-03-17] MEDS: metoprolol tartrate 25 mg Tablet PO ×2 (05:53→17:12)
[2023-03-17] MEDS: docusate sodium 100 mg Capsule PO ×2 (09:54→17:12)
[2023-03-17] MEDS: aspirin 81 mg EC Tablet PO (09:54)
[2023-03-17] MEDS: polyethylene glycol 3350 Pkt 17 gm PO (09:54)
[2023-03-17] MEDS: potassium chloride ER 20 mEq Tablet PO (13:30)
[2023-03-17] MEDS: apixaban 5 mg Tablet 2.5 MG PO (13:30)
[2023-03-17] MEDS: FUROsemide 10 mg/mL SDV 2mL 20 MG IVP (13:30)
--- NOTE | 2023-03-17 15:29 | P.PN_ITS ---
Subjective Subjective: - Patient was seen this morning -She is alert to person, not to place, to time, she can follow some commands, she does not remember her birthdate she knows her name, she does not know her address -I got a hold of patient's daughter and patient's grandson -I discussed my concerns, for UTI, YOSSI, deconditioning, protein melena nutrition -The big issue is her EF is down to 25%, the concern is for possible ischemic cardiomyopathy -Also given with her A-fib -However to do further work-up is includes stress test, and coronary angiography -With her YSOSI which potentially is CKD as she has not seen a physician in a long period of time she has a significant risk of contrast-induced nephropathy and g iven her age she has a significant risk of morbidity and mortality associated with coronary angiography -Certainly we could offer her a stress test if not urgently required but that could certainly delineate further, if her troponin elevation or drop in EF is related to coronary arteries. However the utility of that test could be question given currently her advanced dementia, her poor performance status, and her low BMI. ? Options that I presented the family was pursuing coronary angiography although I would recommend it, with her YOSSI. ? Pursuing stress testing. ? Pursuing medical management placed on all the medications for patient with potential ischemic cardiomyopathy and see how she clinically does, continue to diurese her manage her A-fib. ? Potentially discharge [facility] from there she can follow-up with cardiology as outpatient. ?. The big issue again is her advanced dementia and her poor performance status, and her low BMI, certainly we could give her time, and see if her performance status, and her BMI improves. ? I am worried about her advanced dementia, its not been evaluated clinically it seems as if she has advanced dementia as she has been on antibiotics and have watch her here in the hospital her mentation continues to be about the same since she came into the hospital, she is alert to person, not to place, not to time, she does not know her grandson's name at times she does not know her birthday at times she can follow some commands. ? But certainly we can watch her at her halfway she can receive PT OT, and we can see how her mentation does. ? After discussing the risk and benefits of all options, they voiced understanding, all questions answered, agreed to proceed with medical management. ? I advised that given her ischemic cardiomyopathy she does have a significant risk of morbidity and mortality however her daughter tells me that she does not want her mom to suffer she does not want to have aggressive interventions old a nd want above all is for her mom to be comfortable and they do not want us to do unnecessary aggressive testing that would have complications and intrude on her comfort of life. ? I also spoke to cardiology about patient's clinical condition, underlying risk factors, test results, and her hospitalization, they agree with the plan to pursue medical management for now have her follow-up with outpatient, decide if it would be reasonable to pursue further testing Vitals/I&O/Wt Last Vital Signs Temp 98.2 F 03/17/23 12:00 Pulse 85 03/17/23 14:00 Resp 21 H 03/17/23 12:00 BP 129/88 03/17/23 12:00 Pulse Ox 89 L 03/17/23 12:00 O2 Del Method Room Air 03/17/23 12:00 03/17/23 03/17/23 03/17/23 06:59 14:59 22:59 Intake Total 240 / 742.2 110 / 110 Output Total 750 / 1750 Balance -510 / -1007.8 110 / 110 Weight last 48 hrs Weight 38.238 kg Weight 38.555 kg Weight 40.143 kg Physical Exam Const: COMMON NORMALS: no acute distress ORIENTATION/CONSCIOUSNESS: Yes awake, Yes oriented to person and Yes confused; not oriented to place and not oriented to time Resp: COMMON NORMALS: normal respiratory effort, No retractions, No use of accessory muscles and clear to auscultation bilaterally AUSCULTATION: clear to auscultation bilaterally Cardio: COMMON NORMALS: regular rate, S1 normal heart sound present and S2 normal heart sound present RATE: regular rate RHYTHM: abnormal rhythm irregularly irregular HEART SOUNDS: S1 normal heart sound present and S2 normal heart sound present GI: COMMON NORMALS: Normal to inspection, nondistended, normoactive bowel sounds present, non-tender and no masses Extremity: COMMON NORMALS: no pedal edema Neuro: SENSORIUM/ORIENTATION: Yes oriented to person, No oriented to place and No oriented to time Data 03/17/23 03:36 03/17/23 03:36 Micro: Microbiology 03/15/23 16:46 Urine Culture - Preliminary Urine,Clean Catch Gram Negative Rods 03/15/23 15:28 Blood Culture - Preliminary Blood NEGATIVE TO DATE 03/15/23 14:53 Blood Culture - Preliminary Blood NEGATIVE TO DATE A&P Assessment and plan (1) NSTEMI (non-ST elevated myocardial infarction): (2) Atrial fibrillation with RVR: (3) Adult failure to thrive: (4) Altered mental status: (5) Falls: (6) Symptom of congestive heart failure: (7) Congestive heart failure: (8) Protein-calorie malnutrition, moderate: (9) Physical deconditioning: (10) Hypernatremia: (11) Pulmonary edema: (12) Acute kidney injury: (13) Dementia: (14) UTI (urinary tract infection): (15) Systolic CHF, acute: Plan A-fib with RVR -Currently heart rate is in the 100's -Continue metoprolol 25 mg twice daily -Switch to low-dose Eliquis -Cardiac echo ?1. Mildly increased left ventricular cavity size. Severely ?decreased left ventricular systolic function. Left ventricular ?ejection fraction is estimated at 20-25 %. Global left ?ventricular hypokinesis. ?2.? Mild-moderate mitral valve regurgitation. ?3.? Mild tricuspid valve regurgitation. ?4. Small pericardial effusion. Left pleural effusion. ?5. No Prior similar studies to compare. NSTEMI -Serial EKGs, serial troponins, telemetry monitoring -No chest pain complaints, no cardiovascular history -Metoprolol and lovenox -?1. Mildly increased left ventricular cavity size. Severely ?decreased left ventricular systolic function. Left ventricular ?ejection fraction is estimated at 20-25 %. Global left ?ventricular hypokinesis. ?2.? Mild-moderate mitral valve regurgitation. ?3.? Mild tricuspid valve regurgitation. ?4. Small pericardial effusion. Left pleural effusion. ?5. No Prior similar studies to compare -Aspirin, statin, beta-petrona. -1 dose of Lasix today -Concern for ischemic cardiomyopathy, follow-up with cardiology as outpatient Evidence of CHF -systolic chf -Elevated BNP, chest x-ray showing pulmonary vascular congestion, YOSSI, hyponatremia, could all be evidence of advanced heart failure -1 dose of Lasix today, overall -3 L Pulm edema, pulm vascular congestion, diuresis as above -YOSSI -Baseline creatinine unknown, 1.7 -We will monitor Acute encephalopathy, currently likely at baseline -Baseline mentation unknown -Family reports possible dementia -UA with evidence of UTI -Monitor mentation -CT of the head does show Brain: There is no acute intracranial hemorrhage, cerebral edema, or midline shift. Chronic microvascular ischemic changes are seen in the periventricular white matter. Age-related cerebral and cerebellar volume loss is present. Cerebral ventricles: Mild ex vacuo dilation of the lateral and third ventricles is noted. UTI, continue Rocephin Protein calorie malnutrition -On examination, has peripheral muscle wasting, temporal muscle wasting, muscle wasting of big muscle groups such as thighs, shoulders -Consult nutrition Physical deconditioning, PT OT Speech therapy eval Reported falls Adult failure to thrive, BMI 15 -Consult nutrition Lovenox for DVT prophylaxis Protonix for GI prophylaxis Full code Patient requires hospitalization for persistent encephalopathy likely underlying dementia, with CHF requiring diuresis with A-fib, with ischemic cardiomyopathy concerns, given diminished ejection fraction Attestations 2 Medical Necessity Statement*: Patient requires hospitalization for concerns for ischemic cardiomyopathy, limited troponins, CHF, A-fib, encephalopathy UTI, deconditioning Diagnoses NSTEMI (non-ST elevated myocardial infarction) I21.4 Atrial fibrillation with RVR I48.91 Adult failure to thrive R62.7 Altered mental status R41.82 Falls [id number] Symptom of congestive heart failure R09.89 Congestive heart failure I50.9 Protein-calorie malnutrition, moderate E44.0 Physical deconditioning R53.81 Hypernatremia E87.0 Pulmonary edema J81.1 Acute kidney injury N17.9 Dementia F03.90 UTI (urinary tract infection) N39.0 Systolic CHF, acute I50.21
[2023-03-17] MEDS: pantoprazole 40 mg SDV IVP (17:12)
[2023-03-17] MEDS: cefTRIAXone 1,000 MG in sodium chloride 0.9% (plus) 50 ML 100 MG IV (17:12)
[2023-03-17] MEDS: atorvastatin 40 mg Tablet PO (21:14)
[2023-03-18] VITALS (11 sets, daily range): BP systolic 106–143; BP diastolic 77–89; PULSE 83–105; RESP 16–26; TEMP 36.1–36.8; O2SAT 84–93
[2023-03-18] MEDS: apixaban 5 mg Tablet 2.5 MG PO ×3 (01:03→20:34)
[2023-03-18 03:38] LABS: Basophils # 0.1 10^3/uL (0.0-0.1); Basophils % 0.6 %; Eosinophils # 0.1 10^3/uL (0.0-0.8); Eosinophils % 0.6 %; Hematocrit 38.6 % (37.0-47.0); Hemoglobin 12.2 g/dL (11.5-15.3); Lymphocytes # 0.6 10^3/uL (0.8-4.8); Lymphocytes % 7.3 %; Mean Corpuscular HGB Conc 31.6 g/dL (30.0-36.0); Mean Corpuscular Hemoglobin 31.2 pg (28.0-34.0); Mean Corpuscular Volume 98.7 fl (81-99); Mean Platelet Volume 10.9 fL (7.4-10.4); Monocytes # 0.9 10^3/uL (0.2-0.9); Monocytes % 11.8 %; Neutrophils # 6.34 10^3/uL (1.8-7.7); Neutrophils % 79.2 %; Nucleated Red Blood Cells % 0 %; Platelet Count 237 10^3/cmm (130-400); Red Blood Count 3.91 10^6/uL (4.1-5.3); Red Cell Distribution Width 15.2 % (12.1-15.1)
--- NOTE | 2023-03-18 04:00 | PC.NURSE ---
Patient has been confused through out the shift. Removing her patient gown, disconnecting from monitor several times, attempting to get out of be. Attempts to -reorient patient to situation or safety have been without success and need continual reinforcement.
[2023-03-18 04:08] LABS: Alanine Aminotransferase 15 U/L (0-33); Albumin Level 3.2 g/dL (3.5-5.2); Alkaline Phosphatase 85 U/L (35-105); Aspartate Amino Transferase 16 U/L (0-32); Blood Urea Nitrogen 30 mg/dL (8-23); Calcium 8.8 mg/dL (8.5-10.5); Carbon Dioxide 22 mmol/L (22-29); Chloride 110 mmol/L (98-107); Globulin 2.1 g/dL (1.3-4.6); Glucose 98 mg/dL (65-115); Magnesium 1.8 mg/dL (1.7-2.3); Osmolality Calculated 316 mOsm/kg (285-295); Sodium 150 mmol/L (136-145); Total Bilirubin 0.4 mg/dL (0.15-1.2); Total Protein 5.3 g/dL (6.6-8.7)
[2023-03-18 04:11] LABS: Anion Gap 21.7 (5-19); Potassium 3.7 mmol/L (3.5-5.1)
--- NOTE | 2023-03-18 09:03 | PC.SOCIAL ---
IMM Update pg 2 of IMM updated and reviewed w/ patients grandson. Copy left @ bedside Copy dated, initialed and placed in chart.
[2023-03-18] MEDS: aspirin 81 mg EC Tablet PO (09:37)
--- NOTE | 2023-03-18 09:48 | PC.NURSE ---
Coy removed at 0945.
--- NOTE | 2023-03-18 13:13 | PM.PN ---
Subjective Subjective: Patient was seen this morning, she is alert to person, not to place, not to time, she has no complaints Vitals/I&O/Wt Last Vital Signs Temp 97.1 F L 03/18/23 11:41 Pulse 96 03/18/23 11:41 Resp 19 H 03/18/23 11:41 BP 128/89 03/18/23 11:41 Pulse Ox 89 L 03/18/23 11:41 O2 Del Method Room Air 03/18/23 11:41 O2 Flow Rate 4 03/18/23 07:56 03/17/23 03/18/23 03/18/23 22:59 06:59 14:59 Intake Total 50 / 160 200 / 360 140 / 140 Output Total 975 / 975 800 / 1775 200 / 200 Balance -925 / -815 -600 / -1415 -60 / -60 Weight last 48 hrs Weight 36.605 kg Weight 38.238 kg Physical Exam Const: COMMON NORMALS: no acute distress Neck/C-Spine: COMMON NORMALS: no JVD Resp: COMMON NORMALS: normal respiratory effort, No retractions, No use of accessory muscles and clear to auscultation bilaterally AUSCULTATION: clear to auscultation bilaterally Cardio: COMMON NORMALS: no JVD, regular rate, regular rhythm, S1 normal heart sound present and S2 normal heart sound present RATE: regular rate RHYTHM: regular rhythm HEART SOUNDS: S1 normal heart sound present and S2 normal heart sound present GI: COMMON NORMALS: Normal to inspection, nondistended, normoactive bowel sounds present and non-tender Extremity: COMMON NORMALS: no pedal edema Data 03/18/23 02:55 03/18/23 02:55 Micro: Microbiology 03/15/23 16:46 Urine Culture - Final Urine,Clean Catch Escherichia coli A&P Assessment and plan (1) NSTEMI (non-ST elevated myocardial infarction): (2) Atrial fibrillation with RVR: (3) Adult failure to thrive: (4) Altered mental status: (5) Falls: (6) Symptom of congestive heart failure: (7) Congestive heart failure: (8) Protein-calorie malnutrition, moderate: (9) Physical deconditioning: (10) Hypernatremia: (11) Pulmonary edema: (12) Acute kidney injury: (13) Dementia: (14) UTI (urinary tract infection): (15) Systolic CHF, acute: Plan Hypernatremia, 150, monitor as inpatient A-fib with RVR -Currently heart rate is in the 100's -Continue metoprolol 25 mg twice daily -Switch to low-dose Eliquis -Cardiac echo ?1. Mildly increased left ventricular cavity size. Severely ?decreased left ventricular systolic function. Left ventricular ?ejection fraction is estimated at 20-25 %. Global left ?ventricular hypokinesis. ?2.? Mild-moderate mitral valve regurgitation. ?3.? Mild tricuspid valve regurgitation. ?4. Small pericardial effusion. Left pleural effusion. ?5. No Prior similar studies to compare. NSTEMI -Serial EKGs, serial troponins, telemetry monitoring -No chest pain complaints, no cardiovascular history -Metoprolol and lovenox -?1. Mildly increased left ventricular cavity size. Severely ?decreased left ventricular systolic function. Left ventricular ?ejection fraction is estimated at 20-25 %. Global left ?ventricular hypokinesis. ?2.? Mild-moderate mitral valve regurgitation. ?3.? Mild tricuspid valve regurgitation. ?4. Small pericardial effusion. Left pleural effusion. ?5. No Prior similar studies to compare -Aspirin, statin, beta-petrona. -1 dose of Lasix today -Concern for ischemic cardiomyopathy, follow-up with cardiology as outpatient Evidence of CHF -systolic chf -Elevated BNP, chest x-ray showing pulmonary vascular congestion, YOSSI, hyponatremia, could all be evidence of advanced heart failure - hold Lasix for today Pulm edema, pulm vascular congestion, diuresis as above -YOSSI -Baseline creatinine unknown, 1.6 -We will monitor Acute encephalopathy, currently likely at baseline -Baseline mentation unknown -Family reports possible dementia -UA with evidence of UTI -Monitor mentation -CT of the head does show Brain: There is no acute intracranial hemorrhage, cerebral edema, or midline shift. Chronic microvascular ischemic changes are seen in the periventricular white matter. Age-related cerebral and cerebellar volume loss is present. Cerebral ventricles: Mild ex vacuo dilation of the lateral and third ventricles is noted. UTI, continue Rocephin Protein calorie malnutrition -On examination, has peripheral muscle wasting, temporal muscle wasting, muscle wasting of big muscle groups such as thighs, shoulders -Consult nutrition Physical deconditioning, PT OT Speech therapy eval Reported falls Adult failure to thrive, BMI 15 -Consult nutrition Lovenox for DVT prophylaxis Protonix for GI prophylaxis Full code Attestations Medical Necessity Statement*: Patient requires hospitalization for atrial fibrillation, fluid overload, E. coli UTI, requiring Rocephin, now with hypernatremia requiring serum sodium monitoring Diagnoses NSTEMI (non-ST elevated myocardial infarction) I21.4 Atrial fibrillation with RVR I48.91 Adult failure to thrive R62.7 Altered mental status R41.82 Falls [id number] Symptom of congestive heart failure R09.89 Congestive heart failure I50.9 Protein-calorie malnutrition, moderate E44.0 Physical deconditioning R53.81 Hypernatremia E87.0 Pulmonary edema J81.1 Acute kidney injury N17.9 Dementia F03.90 UTI (urinary tract infection) N39.0 Systolic CHF, acute I50.21
[2023-03-18] MEDS: pantoprazole 40 mg SDV IVP (17:28)
[2023-03-18] MEDS: metoprolol tartrate 25 mg Tablet PO (17:28)
[2023-03-18] MEDS: cefTRIAXone 1,000 MG in sodium chloride 0.9% (plus) 50 ML 100 MG IV (17:28)
[2023-03-18] MEDS: morphine 4 mg/mL SDV 1 mL 1 MG IVP (19:15)
--- NOTE | 2023-03-18 20:28 | PC.NURSE ---
Informed Dr Laird of increased agitation, anxiety, pain, and restlessness. Patient will not leave telemetry in place nor SpO2 sensor. Attempting to climb out of bed as well. placed orders.
[2023-03-18] MEDS: atorvastatin 40 mg Tablet PO (20:34)
[2023-03-18] MEDS: LORazepam 2 mg/mL INJ 1 mL 0.5 MG IVP (20:36)
[2023-03-19] VITALS (106 sets, daily range): BP systolic 103–132; BP diastolic 69–94; PULSE 66–116; RESP 4–32; TEMP 36.3–36.8; O2SAT 78–95
[2023-03-19 02:59] LABS: Basophils % 0.4 %; Eosinophils # 0.2 10^3/uL (0.0-0.8); Eosinophils % 2.6 %; Hematocrit 38.1 % (37.0-47.0); Hemoglobin 11.9 g/dL (11.5-15.3); Lymphocytes # 0.8 10^3/uL (0.8-4.8); Lymphocytes % 10.1 %; Mean Corpuscular HGB Conc 31.2 g/dL (30.0-36.0); Mean Corpuscular Hemoglobin 30.7 pg (28.0-34.0); Mean Corpuscular Volume 98.4 fl (81-99); Mean Platelet Volume 11.1 fL (7.4-10.4); Neutrophils # 5.64 10^3/uL (1.8-7.7); Neutrophils % 73.4 %; Nucleated Red Blood Cells % 0 %; Platelet Count 242 10^3/cmm (130-400); Red Blood Count 3.87 10^6/uL (4.1-5.3); White Blood Count 7.7 10^3/uL (4.0-10.0)
[2023-03-19 03:25] LABS: Anion Gap 17.8 (5-19); Blood Urea Nitrogen 31 mg/dL (8-23); Calcium 8.5 mg/dL (8.5-10.5); Carbon Dioxide 26 mmol/L (22-29); Chloride 109 mmol/L (98-107); Glucose 97 mg/dL (65-115); Osmolality Calculated 314 mOsm/kg (285-295); Potassium 3.8 mmol/L (3.5-5.1); Sodium 149 mmol/L (136-145)
[2023-03-19] MEDS: aspirin 81 mg EC Tablet PO (08:24)
[2023-03-19] MEDS: metoprolol tartrate 25 mg Tablet PO ×2 (08:24→21:36)
[2023-03-19] MEDS: apixaban 5 mg Tablet 2.5 MG PO (13:46)
--- NOTE | 2023-03-19 16:35 | P.PN_ITS ---
Subjective Subjective: Patient was seen this morning, she is alert to person, not to place, not to time, she is quite drowsy this morning as she has received Ativan overnight Vitals/I&O/Wt Last Vital Signs Temp 98.2 F 03/19/23 08:00 Pulse 113 H 03/19/23 14:00 Resp 18 03/19/23 12:45 BP 125/94 03/19/23 12:45 Pulse Ox 91 03/19/23 12:45 O2 Del Method Room Air 03/19/23 08:00 O2 Flow Rate 4 03/18/23 07:56 03/19/23 03/19/23 03/19/23 06:59 14:59 22:59 Intake Total 400 / 665 Balance 400 / 465 Weight last 48 hrs Weight 36.015 kg Weight 36.605 kg Physical Exam Const: COMMON NORMALS: no acute distress Resp: COMMON NORMALS: normal respiratory effort, No retractions, No use of accessory muscles and clear to auscultation bilaterally AUSCULTATION: clear to auscultation bilaterally Cardio: COMMON NORMALS: regular rate, regular rhythm, S1 normal heart sound present and S2 normal heart sound present RATE: regular rate RHYTHM: regular rhythm HEART SOUNDS: S1 normal heart sound present and S2 normal heart sound present GI: COMMON NORMALS: Normal to inspection, nondistended, normoactive bowel sounds present Extremity: COMMON NORMALS: no pedal edema Psych: COMMON NORMALS: mental status grossly normal Data 03/19/23 02:07 03/19/23 02:07 A&P Assessment and plan (1) NSTEMI (non-ST elevated myocardial infarction): (2) Atrial fibrillation with RVR: (3) Adult failure to thrive: (4) Altered mental status: (5) Falls: (6) Symptom of congestive heart failure: (7) Congestive heart failure: (8) Protein-calorie malnutrition, moderate: (9) Physical deconditioning: (10) Hypernatremia: (11) Pulmonary edema: (12) Acute kidney injury: (13) Dementia: (14) UTI (urinary tract infection): (15) Systolic CHF, acute: Plan Hypernatremia, 149, monitor as inpatient A-fib with RVR -Currently heart rate is in the 100's -Continue metoprolol 25 mg twice daily -Switch to low-dose Eliquis -Cardiac echo ?1. Mildly increased left ventricular cavity size. Severely ?decreased left ventricular systolic function. Left ventricular ?ejection fraction is estimated at 20-25 %. Global left ?ventricular hypokinesis. ?2.? Mild-moderate mitral valve regurgitation. ?3.? Mild tricuspid valve regurgitation. ?4. Small pericardial effusion. Left pleural effusion. ?5. No Prior similar studies to compare. NSTEMI -Serial EKGs, serial troponins, telemetry monitoring -No chest pain complaints, no cardiovascular history -Metoprolol and lovenox -?1. Mildly increased left ventricular cavity size. Severely ?decreased left ventricular systolic function. Left ventricular ?ejection fraction is estimated at 20-25 %. Global left ?ventricular hypokinesis. ?2.? Mild-moderate mitral valve regurgitation. ?3.? Mild tricuspid valve regurgitation. ?4. Small pericardial effusion. Left pleural effusion. ?5. No Prior similar studies to compare -Aspirin, statin, beta-petrona. -1 dose of Lasix today -Concern for ischemic cardiomyopathy, follow-up with cardiology as outpatient Evidence of CHF -systolic chf -Elevated BNP, chest x-ray showing pulmonary vascular congestion, YOSSI, hypo natremia, could all be evidence of advanced heart failure - hold Lasix for today Pulm edema, pulm vascular congestion, diuresis as above -YOSSI -Baseline creatinine unknown, 1.6 -We will monitor Acute encephalopathy, currently likely at baseline -Baseline mentation unknown -Family reports possible dementia -UA with evidence of UTI -Monitor mentation -CT of the head does show Brain: There is no acute intracranial hemorrhage, cerebral edema, or midline shift. Chronic microvascular ischemic changes are seen in the periventricular white matter. Age-related cerebral and cerebellar volume loss is present. Cerebral ventricles: Mild ex vacuo dilation of the lateral and third ventricles is noted. UTI, continue Rocephin Protein calorie malnutrition -On examination, has peripheral muscle wasting, temporal muscle wasting, muscle wasting of big muscle groups such as thighs, shoulders -Consult nutrition Physical deconditioning, PT OT Speech therapy eval Reported falls Adult failure to thrive, BMI 15 -Consult nutrition Lovenox for DVT prophylaxis Protonix for GI prophylaxis Full code Attestations Medical Necessity Statement*: Patient requires hospitalization for uti, nstemi, afib, hypernatremia Diagnoses NSTEMI (non-ST elevated myocardial infarction) I21.4 Atrial fibrillation with RVR I48.91 Adult failure to thrive R62.7 Altered mental status R41.82 Falls [id number] Symptom of congestive heart failure R09.89 Congestive heart failure I50.9 Protein-calorie malnutrition, moderate E44.0 Physical deconditioning R53.81 Hypernatremia E87.0 Pulmonary edema J81.1 Acute kidney injury N17.9 Dementia F03.90 UTI (urinary tract infection) N39.0 Systolic CHF, acute I50.21
[2023-03-19] MEDS: pantoprazole 40 mg SDV IVP (17:42)
[2023-03-19] MEDS: atorvastatin 40 mg Tablet PO (21:36)
[2023-03-20] VITALS (7 sets, daily range): BP systolic 107–142; BP diastolic 72–87; PULSE 79–97; RESP 14–26; TEMP 36.2–36.3; O2SAT 87–92
[2023-03-20] MEDS: apixaban 5 mg Tablet 2.5 MG PO (00:05)
[2023-03-20 04:41] LABS: Basophils % 0.5 %; Eosinophils # 0.1 10^3/uL (0.0-0.8); Eosinophils % 1.5 %; Hematocrit 40.2 % (37.0-47.0); Hemoglobin 12.1 g/dL (11.5-15.3); Lymphocytes # 0.5 10^3/uL (0.8-4.8); Lymphocytes % 6.5 %; Mean Corpuscular HGB Conc 30.1 g/dL (30.0-36.0); Mean Corpuscular Hemoglobin 29.8 pg (28.0-34.0); Mean Platelet Volume 10.4 fL (7.4-10.4); Monocytes # 0.9 10^3/uL (0.2-0.9); Monocytes % 10.9 %; Neutrophils # 6.31 10^3/uL (1.8-7.7); Neutrophils % 80.1 %; Nucleated Red Blood Cells % 0 %; Platelet Count 238 10^3/cmm (130-400); Red Blood Count 4.06 10^6/uL (4.1-5.3); Red Cell Distribution Width 14.9 % (12.1-15.1); White Blood Count 7.9 10^3/uL (4.0-10.0)
[2023-03-20 04:55] LABS: Anion Gap 18.6 (5-19); Blood Urea Nitrogen 26 mg/dL (8-23); Calcium 8.7 mg/dL (8.5-10.5); Carbon Dioxide 23 mmol/L (22-29); Chloride 110 mmol/L (98-107); Glucose 100 mg/dL (65-115); Osmolality Calculated 311 mOsm/kg (285-295); Potassium 3.6 mmol/L (3.5-5.1); Sodium 148 mmol/L (136-145)
[2023-03-20 06:28] LABS: SARS Covid-2 Antigen negative (Negative)
[2023-03-20] MEDS: aspirin 81 mg EC Tablet PO (09:21)
[2023-03-20] MEDS: docusate sodium 100 mg Capsule PO (09:21)
[2023-03-20] MEDS: metoprolol tartrate 25 mg Tablet PO (09:21)
--- NOTE | 2023-03-20 10:05 | P.DS_ITS ---
Discharge Providers Date of Admission: 03/15/23 16:46 Date of Discharge: March 20, 2023 Attending Provider at Admission: Tanvir Lynch MD Attending Provider at Discharge: Tanvir Lynch MD Diagnoses at Discharge Discharge Diagnosis (1) NSTEMI (non-ST elevated myocardial infarction): Status: Acute (2) Atrial fibrillation with RVR: Status: Acute (3) Adult failure to thrive: Status: Acute (4) Altered mental status: Status: Acute (5) Falls: Status: Acute (6) Symptom of congestive heart failure: Status: Acute (7) Congestive heart failure: Status: Acute (8) Protein-calorie malnutrition, moderate: Status: Acute (9) Physical deconditioning: Status: Acute (10) Hypernatremia: Status: Acute (11) Pulmonary edema: Status: Acute (12) Acute kidney injury: Status: Acute (13) Dementia: Status: Acute (14) UTI (urinary tract infection): Status: Acute (15) Systolic CHF, acute: Status: Acute Reason for Visit Reason for Visit: FAILURE TO THRIVE Hospital Course Hospital Course Vaishali Rojas is a 88 year old female with no known past medical history, she has not seen a physician in many years, she lives at home with her grandson, and her daughter, who presents to [facility] due to altered mental status, generalized weakness, poor appetite, fall, generalized decline.? Currently patient is alert to person, not to place, not to time, she can follow some basic commands, briefly has no complaints, she does not know why she is here in the hospital, she denies any pain complaints, denies any shortness of breath complaints, no chest pain complaints, currently she is running atrial fibrillation, heart rates in the 110s, normotensive, afebrile, on room air.? I was able to speak to patient's grandson, he tells me that the family seems to think she has Alzheimer's dementia as she has had a generalized decline for the last few months, she has been more forgetful, but over the last 2 weeks she has had a rapid decline, she has not walked in over a week, she full assist to the commode, she is more confused, she will not eat anything, no fevers, no nausea, no vomiting no abdominal pain complaints, no shortness of breath complaints she did fall, but no localizing symptoms or pain complaints, she did does not have a cardiac history to his knowledge, does not have a long history to his knowledge, no history of strokes, no history of cancers, he is not sure if there is any family history,, he is not sure if there is any surgeries in her past, no history of smoking, his major concern was is that she has not eaten or drank for the last 2 weeks, and she has not been able to get up or ambulate Patient presented to [facility] for altered mental status, poor appetite, generalized weakness During hospitalization she was found to have A-fib with RVR, managed with oral metoprolol, Eliquis therapy, overall heart rates are well controlled, will be discharged on metoprolol, Eliquis with follow-up with cardiology as outpatient For patient's congestive heart failure, she was intermittently diuresed during her hospitalization, overall clinically improved, discharged on Lasix 20 mg once daily with potassium replacement. She was found to have an EF of 20 to 25%, with NSTEMI, concerns for ischemic cardiomyopathy, after goals of care discussion with family, given her advanced dementia, physical deconditioning, adult failure to thrive, decision was made to pursue medical management, discharged on aspirin, statin, beta-petrona, Eliquis, Lasix with a close follow-up with cardiology as outpatient. Adult failure to thrive, BMI 13.9, physical deconditioning, severe protein calorie malnutrition, likely secondary to advanced dementia Hypernatremia, likely secondary to diuresis, poor oral intake, serum sodium on discharge 148, monitor as outpatient Chronic kidney disease, creatinine discharge 1.4 had YOSSI during hospitalization baseline creatinine unknown Acute encephalopathy, some component related to dementia, some component related to UTI, she completed 4 days of IV antibiotic therapy as inpatient, cultures have shown E. coli, pansensitive. On discharge patient remains pleasantly confused, she can follow some commands, she is alert to person, not to place, not to time, I suspect patient she has underlying dementia which has been undiagnosed for some period of time which has gradually worsened, resulting in her adult failure to thrive, and her physical deconditioning, worsening mentation. She did receive inpatient speech therapy eval, dietary eval, to be discharged to [facility] on a GI soft diet, speech therapy eval, and dietary eval [facility]. I have held off on starting any dementia medications, follow-up with neurology as outpatient. Minimal T11 and severe T12 compression fractures. These are age indeterminate.Had no back pain, complaints Physical Exam Const: COMMON NORMALS: no acute distress ORIENTATION/CONSCIOUSNESS: Yes awake, Yes oriented to person and Yes confused; not oriented to place and not oriented to time Resp: COMMON NORMALS: normal respiratory effort, No retractions, No use of accessory muscles and clear to auscultation bilaterally AUSCULTATION: clear to auscultation bilaterally Cardio: COMMON NORMALS: regular rate, regular rhythm, S1 normal heart sound present and S2 normal heart sound present RATE: regular rate RHYTHM: regular rhythm HEART SOUNDS: S1 normal heart sound present and S2 normal heart sound present GI: COMMON NORMALS: Normal to inspection, nondistended, normoactive bowel sounds present and non-tender Extremity: COMMON NORMALS: no pedal edema Neuro: SENSORIUM/ORIENTATION: Yes oriented to person, No oriented to place and No oriented to time Discharge Data Studies Completed and Pending Completed Studies During Hospitalization Category Date Time Status CT chest abdomen pelvis [[place] [id number] Cat Scan 03/15/23 16:45 Completed ] Stat CT head wo con* [id number] Stat Cat Scan 03/15/23 14:41 Completed XR chest 1V portable [id number] Stat Exams 03/15/23 14:41 Completed CV. echo complete* [id number] Stat Ultrasound 03/15/23 16:45 Completed Pending at discharge Category Date Time Status Basic Metabolic Panel AM LABS Lab 03/21/23 04:00 Ordered Blood Culture Stat Lab 03/15/23 15:28 Results Complete Blood Count w/Auto AM LABS Lab 03/21/23 04:00 Ordered Radiology Impressions Chest X-Ray 03/15/23 14:41 IMPRESSION: 1. Cardiac enlargement with pulmonary vascular congestion and bilateral pleural effusions consistent with CHF. Head CT 03/15/23 14:41 IMPRESSION: 1. No acute intracranial abnormality. 2. Atrophy and chronic deep white matter ischemic changes. Chest/Abdomen/Pelvis CT 03/15/23 16:45 IMPRESSION: 1. No acute findings. 2. Moderate pleural effusions with dependent atelectasis. 3. Pericardial effusion. IMPRESSION: 1. No acute findings. 2. Diffuse body wall edema. 3. Rectal impaction. ADDENDUM: 03/15/232142 Minimal T11 and severe T12 compression fractures. These are age indeterminate. Laboratory Results WBC 7.9 10^3/uL (4.0-10.0) 03/20/23 04:22 RBC 4.06 10^6/uL (4.1-5.3) L 03/20/23 04:22 Hgb 12.1 g/dL (11.5-15.3) 03/20/23 04:22 Hct 40.2 % (37.0-47.0) 03/20/23 04:22 MCV 99.0 fl (81-99) 03/20/23 04:22 MCH 29.8 pg (28.0-34.0) 03/20/23 04:22 MCHC 30.1 g/dL (30.0-36.0) 03/20/23 04:22 RDW 14.9 % (12.1-15.1) 03/20/23 04:22 Plt Count 238 10^3/cmm (130-400) 03/20/23 04:22 MPV 10.4 fL (7.4-10.4) 03/20/23 04:22 Neut % (Auto) 80.1 % 03/20/23 04:22 Lymph % (Auto) 6.5 % 03/20/23 04:22 Clarke % (Auto) 10.9 % 03/20/23 04:22 Eos % (Auto) 1.5 % 03/20/23 04:22 Baso % (Auto) 0.5 % 03/20/23 04:22 Neut # (Auto) 6.31 10^3/uL (1.8-7.7) 03/20/23 04:22 Lymph # (Auto) 0.5 10^3/uL (0.8-4.8) L 03/20/23 04:22 Clarke # (Auto) 0.9 10^3/uL (0.2-0.9) 03/20/23 04:22 Eos # (Auto) 0.1 10^3/uL (0.0-0.8) 03/20/23 04:22 Baso # (Auto) 0.0 10^3/uL (0.0-0.1) 03/20/23 04:22 Nucleated RBC % (auto) 0 % 03/20/23 04:22 Nucleated RBCs # 0.0 /100WBC 03/20/23 04:22 APTT 66.8 SECONDS (23.9-36.7) H 03/16/23 16:57 Sodium 148 mmol/L (136-145) H 03/20/23 04:22 Potassium 3.6 mmol/L (3.5-5.1) 03/20/23 04:22 Chloride 110 mmol/L (98-107) H 03/20/23 04:22 Carbon Dioxide 23 mmol/L (22-29) 03/20/23 04:22 Anion Gap 18.6 (5-19) 03/20/23 04:22 BUN 26 mg/dL (8-23) H 03/20/23 04:22 Creatinine 1.4 mg/dL (0.5-0.9) H 03/20/23 04:22 GFR Calculation Not Reportable 03/20/23 04:22 Glucose 100 mg/dL (65-115) 03/20/23 04:22 POC Glucose 116 mg/dL (70-110) H 03/15/23 20:53 Estimat Average Glucose 103 03/15/23 14:53 Hemoglobin A1c 5.2 % (4.0-6.0) 03/15/23 14:53 Calculated Osmolality 311 mOsm/kg (285-295) H 03/20/23 04:22 Lactic Acid 1.7 mmol/L (0.5-2.2) 03/15/23 14:53 Calcium 8.7 mg/dL (8.5-10.5) 03/20/23 04:22 Phosphorus 3.6 mg/dL (2.5-4.5) 03/16/23 01:30 Magnesium 1.8 mg/dL (1.7-2.3) 03/18/23 02:55 Total Bilirubin 0.4 mg/dL (0.15-1.2) 03/18/23 02:55 AST 16 U/L (0-32) 03/18/23 02:55 ALT 15 U/L (0-33) 03/18/23 02:55 Alkaline Phosphatase 85 U/L (35-105) 03/18/23 02:55 Troponin T Baseline 66 ng/L (0-10) H 03/15/23 14:53 Troponin T 120 Minute 59.96 ng/L (0-10) H 03/15/23 17:03 Delta Troponin T -6.04 ABS# (0-10) L 03/15/23 17:03 Troponin T Hi Sens 6Hr 68.82 ng/L (0-10) H 03/15/23 21:00 Troponin T Hi Sens 6Hr Delta 2.82 ng/L (0-12) 03/15/23 21:00 C-Reactive Protein 12.5 mg/L (0.0-4.9) H 03/15/23 14:53 NT-Pro-B Natriuret Pep 13904 pg/mL (0-450) H 03/19/23 02:07 Total Protein 5.3 g/dL (6.6-8.7) L 03/18/23 02:55 Albumin 3.2 g/dL (3.5-5.2) L 03/18/23 02:55 Globulin 2.1 g/dL (1.3-4.6) 03/18/23 02:55 Triglycerides 125 mg/dL (0-150) 03/15/23 14:53 Cholesterol 187 mg/dL (0-200) 03/15/23 14:53 LDL Cholesterol, Calc 102 mg/dL (50-129) 03/15/23 14:53 HDL Cholesterol 60 mg/dL (60-100) 03/15/23 14:53 LDL/HDL Ratio 1.70 RATIO (0.00-3.22) 03/15/23 14:53 Cholesterol/HDL Ratio 3.12 mg/dL (0.0-4.40) 03/15/23 14:53 Procalcitonin 0.09 ng/mL (0-0.5) 03/15/23 14:53 TSH 3.99 uIU/mL (0.27-4.20) 03/15/23 14:53 Urine Color Yellow (Yellow) 03/15/23 16:46 Urine Appearance Hazy (CLEAR) A 03/15/23 16:46 Urine pH 5 (5-7) 03/15/23 16:46 Ur Specific [place] 1.020 (1.005-1.030) 03/15/23 16:46 Urine Protein Trace (Negative) 03/15/23 16:46 Urine Glucose (UA) Norm (Normal) 03/15/23 16:46 Urine Ketones Negative (Negative) 03/15/23 16:46 Urine Blood Trace (Negative) H 03/15/23 16:46 Urine Nitrate Positive (Negative) H 03/15/23 16:46 Urine Bilirubin Neg (Negative) 03/15/23 16:46 Urine Urobilinogen Norm mg/dL (Negative) 03/15/23 16:46 Ur Leukocyte Esterase 2+ (Negative) H 03/15/23 16:46 Urine RBC 5-10 /hpf (0-2) H 03/15/23 16:46 Urine WBC 25-40 /hpf (0-5) H 03/15/23 16:46 Ur Squamous Epith Cells 0-4 /hpf (0-5) H 03/15/23 16:46 Amorphous Sediment Not Reportable 03/15/23 16:46 Urine Bacteria 4+ /hpf (NONE) H 03/15/23 16:46 Nasal Influ A H1 2009 PCR Not detected (NOT DETECT) 03/15/23 15:44 Adenovirus (PCR) Not detected (NOT DETECT) 03/15/23 15:44 C. pneumoniae DNA (PCR) Not detected (NOT DETECT) 03/15/23 15:44 Coronavirus 229E (PCR) Not detected (NOT DETECT) 03/15/23 15:44 Human Metapneumovir PCR Not detected (NOT DETECT) 03/15/23 15:44 Influenza A (H1) PCR Not detected (NOT DETECT) 03/15/23 15:44 Influenza A (H3) PCR Not detected (NOT DETECT) 03/15/23 15:44 Influenza Type A (PCR) Not detected (NOT DETECT) 03/15/23 15:44 Influenza Type B (PCR) Not detected (NOT DETECT) 03/15/23 15:44 M. pneumoniae (PCR) Not detected (NOT DETECT) 03/15/23 15:44 Parainfluenza 1 (PCR) Not detected (NOT DETECT) 03/15/23 15:44 Parainfluenza 2 (PCR) Not detected (NOT DETECT) 03/15/23 15:44 Parainfluenza 3 (PCR) Not detected (NOT DETECT) 03/15/23 15:44 Parainfluenza 4 (PCR) Not detected (NOT DETECT) 03/15/23 15:44 RSV Type A (PCR) Not detected (NOT DETECT) 03/15/23 15:44 RSV Type B (PCR) Not detected (NOT DETECT) 03/15/23 15:44 Entero/Rhino (PCR) Not detected (NOT DETECT) 03/15/23 15:44 SARS-CoV-2 (PCR) Not detected (NOT DETECT) 03/15/23 15:44 SARS-CoV-2 Ag (Rapid) negative (Negative) 03/20/23 05:30 Vitals Last Vital Signs Temp 97.2 F L 03/20/23 08:00 Pulse 79 03/20/23 08:00 Resp 18 03/20/23 08:00 BP 142/78 03/20/23 08:00 Pulse Ox 89 L 03/20/23 07:32 O2 Del Method Room Air 03/20/23 07:32 O2 Flow Rate 4 03/18/23 07:56 Discharge Plan Discharge Patient Disposition: Xfer SNF Condition: Stable Prescriptions: New atorvastatin 40 mg Tablet 40 mg PO BEDTIME 30 Days Qty: 30 0RF polyethylene glycol 3350 17 gram Powder In Packet 17 g PO DAILY PRN (Reason: constipation) 30 Days Qty: 30 0RF aspirin 81 mg Tablet,Delayed Release (Dr/Ec) 81 mg PO DAILY 30 Days Qty: 30 0RF docusate sodium 100 mg Capsule 100 mg PO BID 30 Days Qty: 60 0RF metoprolol tartrate 25 mg Tablet 25 mg PO Q12H 30 Days Qty: 60 0RF Eliquis 5 mg Tablet 2.5 mg PO Q12H 30 Days Qty: 30 0RF Protonix 40 mg tablet,delayed release (DR/EC) 40 mg PO QAM 30 Days Qty: 30 0RF Lasix 20 mg tablet 20 mg PO DAILY 30 Days Qty: 30 0RF Klor-Con 10 10 mEq tablet extended release 10 meq PO DAILY 30 Days Qty: 30 0RF Discharge Orders: Discharge Order (Routine); Ordered 03/20/23 Ordered By: Tanvir Lynch Referrals: [facility] [Outside] Saran Quispe MD [Physician] - 1 month Rand Lux MD [Physician] - 1 week Discharge Diet: GI Soft Discharge Activity: Resume usual activity Patient Instructions: Heart Failure (DC), CHF Stoplight, Opioid Safety, Post Heart Attack Stoplight Activity Restrictions/Additional Instructions: - Please have [facility] recheck serum sodium in 48 hours -Please see cardiology in 1 week -Please recheck kidney function in 48 hours -Dietary evaluation -Aspiration precautions Discharge Attestations Time Spent in Discharge Care*: greater than 30 min Quality Metrics Clinical Quality Measures [ No reported AMI, CVA or VTE this stay] Coding Level of Care Code 43692 Total time (in minutes) for Discharge: 50 Diagnoses NSTEMI (non-ST elevated myocardial infarction) I21.4 Atrial fibrillation with RVR I48.91 Adult failure to thrive R62.7 Altered mental status R41.82 Falls W19.XXXA Symptom of congestive heart failure R09.89 Congestive heart failure I50.9 Protein-calorie malnutrition, moderate E44.0 Physical deconditioning R53.81 Hypernatremia E87.0 Pulmonary edema J81.1 Acute kidney injury N17.9 Dementia F03.90 UTI (urinary tract infection) N39.0 Systolic CHF, acute I50.21
--- NOTE | 2023-03-20 11:09 | PC.SOCIAL ---
[facility] IMM updated: Pg 2 of [facility] dated and reviewed with pt. Copy provided. Copy dated, initialed and placed in chart at 0901.
--- NOTE | 2023-03-20 11:38 | PC.NURSE ---
Report called to LORI Guzmán at [facility]. [facility] will be providing transportation for Vaishali from the hospital to [facility].
== END 2023-03-20 13:26 | disposition skilled nursing facility (03) | DRG 280 ==
LOC: ER 16:40 → CSU 16:47
PROVIDERS: Admitting Provider Family Medicine; Emergency Provider Emergency Medicine; Visit Provider Family Medicine
DX: I21.4 Non-ST elevation (NSTEMI) myocardial infarction (principal); E43 Unspecified severe protein-calorie malnutrition; I50.21 Acute systolic (congestive) heart failure; G93.41 Metabolic encephalopathy; Z68.1 Body mass index [BMI] 19.9 or less, adult; E87.0 Hyperosmolality and hypernatremia; N17.9 Acute kidney failure, unspecified; N39.0 Urinary tract infection, site not specified; N18.9 Chronic kidney disease, unspecified; I48.91 Unspecified atrial fibrillation; F03.90 Unspecified dementia, unspecified severity, without behavioral disturbance, psychotic disturbance, mood disturbance, and anxiety; B96.20 Unspecified Escherichia coli [E. coli] as the cause of diseases classified elsewhere; I25.5 Ischemic cardiomyopathy
CPT/HCPCS: 36415; 36416; 70450; 71045; 71250; 74176; 80048; 80053; 80061; 81001; 82962; 83036; 83605; 83735; 83880; 84100; 84145; 84443; 84484; 85025; 85730; 86140; 87040; 87077; 87086; 87186; 87426; 87486; 87581; 87633; 92523; 92526; 92610; 93005; 93306; 94664; 96372; 96374; 96375; 96376; 97110; 97161; 97167; 99285; C9113; J0696; J1650; J1940; J2060; J2270

== ENCOUNTER → 2023-03-28 09:21 | Outpatient (BNVA) | payer MEDICARE, OTHER, SELFPAY | PROVIDERS: Visit Provider Internal Medicine Cardiovascular Disease | DX: I50.9 Heart failure, unspecified (principal); I48.91 Unspecified atrial fibrillation; I25.2 Old myocardial infarction; F03.90 Unspecified dementia, unspecified severity, without behavioral disturbance, psychotic disturbance, mood disturbance, and anxiety; E44.0 Moderate protein-calorie malnutrition; Z87.891 Personal history of nicotine dependence; Z79.01 Long term (current) use of anticoagulants; Z79.82 Long term (current) use of aspirin | CPT/HCPCS: 99204 ==

== ENCOUNTER → 2023-04-19 08:27 | Outpatient (BNVA) | payer MEDICARE, OTHER, SELFPAY | PROVIDERS: PCP Internal Medicine; Referring Provider Family Medicine; Visit Provider Psychiatry & Neurology Neurology | DX: F03.90 Unspecified dementia, unspecified severity, without behavioral disturbance, psychotic disturbance, mood disturbance, and anxiety (principal); R53.81 Other malaise; I50.9 Heart failure, unspecified; R62.7 Adult failure to thrive; E55.9 Vitamin D deficiency, unspecified; E07.9 Disorder of thyroid, unspecified; I95.9 Hypotension, unspecified; I48.91 Unspecified atrial fibrillation; Z79.01 Long term (current) use of anticoagulants | CPT/HCPCS: 99203 ==

== ENCOUNTER 2023-05-04 11:00 | Outpatient (CLI) | payer MEDICARE, OTHER, SELFPAY ==
--- NOTE | 2023-05-04 11:15 | USCV_ITS ---
BobVaishali galloway Age: 88 Gender: F : 1935 Exam Date: 05/04/2023 11:15 Ordering Phys: Saran Quispe MD Technologist: DRE [place] [facility] [place]: Dementia Risk Factors: Previous Vascular Surgery: Right Brachial BP: / Left Brachial BP: / Right Left Velocity (cm/s) Spectral Plaque Velocity (cm/s) Spectral Plaque Syst/Diast Broadening Syst/Diast Broadening 48.60/ 10.50 Prox CCA 45.90 / 8.70 64.40/ 10.50 Mid CCA 57.70 / 11.10 45.30/ 9.30 Distal CCA 64.80 / 8.10 33.20/ 9.70 Prox ICA 24.70 / 6.20 40.10/ 10.30 Mid ICA 47.10 / 12.70 51.80/ 15.90 Distal ICA 42.90 / 11.80 63.00 ECA 30.20 0.80 ICA/CCA 0.73 Antegrade Vertebral Antegrade 33.80/ 6.80 cm/s 66.80/ 10.90 cm/s Bi Subclavian Tri 49.40 64.30 CONCLUSIONS Right ICA stenosis <50%. Mild atheromatous plaque right carotid bulb/ICA. Left ICA stenosis <50%. Mild atheromatous plaque left carotid bulb/ICA. Normal antegrade Doppler flow noted in the right vertebral artery. Normal antegrade Doppler flow noted in the left vertebral artery. Avi Kong MD (Electronically Signed) Final Date: 04 May 2023 14:04 S
== END 2023-05-04 11:01 | disposition home or self-care (01) ==
PROVIDERS: PCP Internal Medicine; Visit Provider Psychiatry & Neurology Neurology
DX: F03.90 Unspecified dementia, unspecified severity, without behavioral disturbance, psychotic disturbance, mood disturbance, and anxiety (principal); Z09 Encounter for follow-up examination after completed treatment for conditions other than malignant neoplasm; I65.23 Occlusion and stenosis of bilateral carotid arteries; I50.9 Heart failure, unspecified
CPT/HCPCS: 93880